=== PATIENT | female | born 1965 | race Caucasian/White ===

== ENCOUNTER 2016-08-04 14:36 | Inpatient (IN) | payer OTHER ==
[~2016-08-04] VITALS: Ht 165.1 cm; Wt 74.1 kg
--- NOTE | ~2016-08-04 | EKG ---
[place] [address] [facility] [place] [address] ELECTROCARDIOGRAM REPORT Name: GELY MARTINEZ SAMANTHA [facility] [id number] Admission: 08/04/16 Attend Phys: Discharge: Date of : 65 Report #: [id number] THIS REPORT FOR: //name// [facility] ED Test Date: 2016-08-04 Test Time: 15:15:58 Pat Name: GELY MARTINEZ Department: Room: Gender: F Brace Maker: DAVID : 1965 Requested By: Debbie Rdz Order Number: [id number] MD: Braxton Lewis Measurements Intervals [place] Rate: 70 P: 80 [place]: 171 QRS: 87 QRSD: 91 T: 62 QT: 401 QTc: 433 Interpretive Statements Sinus rhythm ST elev, probable normal early repol pattern Compared to ECG 07/16/2016 22:02:11 No significant changes Electronically Signed On 08-04-2016 15:52:32 PILOT CAN ROUTER by Braxton Lewis [email or web address] <ELECTRONICALLY SIGNED> By: Braxton Lewis MD 08/04/16 1552 D: [id number] 14 Braxton Lewis MD /LOIDA
[~2016-08-04 14:36] MED LIST: ADVAIR 250-501 EACH IH; ALBUTEROL INH; ALBUTEROL INHAL17 GM IH; ALBUTEROL NEB; ALBUTEROL2.5 MG/3 M INH; ANORO ELLIPTA1 EACH; AUGMENTIN 875875 MG PO; AZITHROMYCIN 2250 MG PO; BACTRIM DS TAB1 EACH PO; BENZTROPINE MESY2 MG PO; BREO ELLIPTA 21 EACH IH; CHLORDIAZEPOXIDE5 M2 PO; DOXYCYCLINE 10100 M1 PO; DUONEB 2.5-0.5 M3 ML INH; ESKALITH300 MG PO; INCRUSE ELLI62.5 MCG IH; LAMOTRIGINE200 MG PO; LEVAQUIN 500 M500 M1 PO; LEVAQUIN 500 M500 M2 PO; LOPRESSOR50 PO; MEDROLDOSEPACK PO; MOBIC15 MG PO; MOBIC7.5 MG PO; MUCINEX TA600 MG/TA2 PO; MUCINEX600 MG; NORCO 5-325 TA1 EACH PO; NORFLEX100 MG PO; PERCOCET 5-3251 EACH PO; PREDNISONE 10 M10 M1 PO; PREDNISONE 10 M10 MG PO; PREDNISONE 20 M20 M1 PO; PREDNISONE 5 MG5 M1 PO; PREDNISONE50 MG PO; PROAIR HFA8.5 GM IH; PROAIR RESPICL90 MCG IH; PROPRANOLOL 1010 MG PO; PROPRANOLOL 20M20 M1 PO; QUETIAPINE FUM200 MG PO; SEROQUEL400 MG PO; SPIRIVA INH; SYNTHROID150 MCG PO; SYNTHROID50 MCG PO; TESSALON PERLE100 MG; TESSALON PERLE100 MG PO; TRAMADOL; VENTOLIN17 GM INH; VITAMIN D 5050000 I1 PO; ZPAK PO
[2016-08-04 14:37] VITALS: BP 104/70
[2016-08-04 15:19] LABS: ABSOLUTE NEUTROPHILS 3.6 thou/uL (1.4-8.2); BASOPHILS 0.5 % (0.0-2.0); EOSINOPHILS 1.3 % (0.0-3.0); HEMATOCRIT 40.6 % (37.0-47.0); HEMOGLOBIN 13.1 gm/dL (12.0-15.0); LYMPHOCYTES 29.7 % (24.0-44.0); MCH 29.1 pg (26.0-34.0); MCHC 32.2 % (28.0-37.0); MCV 90.4 fL (80.0-100.0); MONOCYTES 4.2 % (1.0-8.0); PLATELET COUNT 141 thou/uL (150-400); POLYS 64.3 % (36.0-66.0); RBC 4.49 mil/uL (4.20-5.00); RDW 14.6 % (10.5-14.5); WBC 5.5 thou/uL (4.0-11.0)
[2016-08-04 15:21] LABS: MANUAL DIFF NO
[2016-08-04 15:23] LABS: ANION GAP 4 mmol/L (7-16); BUN 11 mg/dL (7-18); CALCIUM 9.2 mg/dL (8.5-10.1); CHLORIDE 105 mmol/L (98-107); CO2 38 mmol/L (21-32); CREATININE 0.8 mg/dL (0.6-1.3); GLUCOSE 133 mg/dL (70-99); POTASSIUM 3.9 mmol/L (3.5-5.1); SODIUM 147 mmol/L (136-145)
[2016-08-04 15:33] LABS: ALBUMIN 3.5 g/dL (3.4-5.0); ALKALINE PHOSPHATASE 62 U/L (46-116); SGOT 10 U/L (15-37); TOTAL BILIRUBIN 0.2 mg/dL (<0.1-1.0); TOTAL PROTEIN 6.7 g/dL (6.4-8.2); TROPONIN-I < 0.04 ng/mL (<0.04-0.07)
[2016-08-04 15:52] LABS: ABG SAMPLE TYPE ARTERIAL; BE(vivo) 6.6 mmol/L (-2 to +3); HCO3 34.7 mmol/L (22.0-26.0); LACTATE 0.91 mmol/L (0.5-2.0); O2(CT) 17.8 mL/dL (15.0-23.0); O2Hb 96.9 % (92.0-98.0); PO2 149.8 mmHg (80.0-100.0); sO2 98.7 % (92.0-98.0); tCO2 36.8 mmol/L (24.0-30.0)
[2016-08-04 15:53] LABS: PCO2 67.8 mmHg (35.0-45.0); STICK SITE R.RADIAL; pH 7.327 (7.360-7.450)
[2016-08-04 16:42] VITALS: BP 99/61
[2016-08-04 17:37] VITALS: BP 95/54
[2016-08-04 19:15] VITALS: BP 94/51
[2016-08-04 23:15] LABS: SGPT 20 U/L (30-65)
[2016-08-05] VITALS (9 sets, daily range): BP systolic 89–136; BP diastolic 41–72
[2016-08-05 00:58] LABS: ABG SAMPLE TYPE ARTERIAL; BE(vivo) 5.7 mmol/L (-2 to +3); HCO3 32.9 mmol/L (22.0-26.0); O2(CT) 17.1 mL/dL (15.0-23.0); O2Hb 92.7 % (92.0-98.0); PO2 68.4 mmHg (80.0-100.0); pH 7.357 (7.360-7.450); sO2 92.5 % (92.0-98.0); tCO2 34.7 mmol/L (24.0-30.0)
[2016-08-05 00:59] LABS: LACTATE 3.72 mmol/L (0.5-2.0); STICK SITE L.RADIAL
[2016-08-05 04:40] LABS: HEMATOCRIT 39.8 % (37.0-47.0); HEMOGLOBIN 12.5 gm/dL (12.0-15.0); MCH 28.5 pg (26.0-34.0); MCHC 31.3 % (28.0-37.0); MCV 91.1 fL (80.0-100.0); PLATELET COUNT 164 thou/uL (150-400); RBC 4.37 mil/uL (4.20-5.00); RDW 14.8 % (10.5-14.5); WBC 5.3 thou/uL (4.0-11.0)
[2016-08-05 04:44] LABS: MANUAL DIFF YES
[2016-08-05 04:50] LABS: CREATININE 0.9 mg/dL (0.6-1.3); POTASSIUM 4.1 mmol/L (3.5-5.1)
[2016-08-05 07:05] LABS: ANISOCYTOSIS SLIGHT; PLATELET ESTIMATE NORMAL; TOTAL CELL COUNT 100
[2016-08-05] MEDS ORDERED: LOPRESSOR50 PO (14:58)
[2016-08-05] MEDS ORDERED: SEROQUEL 50 MG50 MG PO (15:00)
[2016-08-06 05:42] VITALS: BP 115/53
[2016-08-06 08:00] VITALS: BP 122/75
[2016-08-06 12:00] VITALS: BP 118/72
[2016-08-06] MEDS ORDERED: LEVAQUIN 500 M500 M9 PO (12:00)
[2016-08-06] MEDS ORDERED: PREDNISONE 10 M10 M1 PO (12:07)
[2016-08-06] MEDS ORDERED: ZITHROMAX250 MG NG (12:07)
[2016-08-06] MEDS ORDERED: ALBUTEROL2.5 MG/3 M INH (12:07)
[2016-10-05] MEDS ORDERED: DUREZOL5 ML OP (20:45)
[2016-10-05] MEDS ORDERED: BESIVANCE5 ML OP (20:46)
[2016-10-05] MEDS ORDERED: QUETIAPINE FUM200 MG PO (20:46)
[2016-10-05] MEDS ORDERED: FLEXERIL PO (21:11)
[2016-10-05] MEDS ORDERED: NORCO 5-325 TA1 EACH PO (21:12)
== END 2016-08-06 15:30 | disposition home or self-care (01) | DRG 189 ==
LOC: ER 14:36 → EROBS 16:14 → 4S 16:14
PROVIDERS: Emergency Medicine; Internal Medicine
PROC: 5A09357 Assistance with Respiratory Ventilation, Less than 24 Consecutive Hours, Continuous Positive Airway Pressure (ICD-10-PCS; principal; 2016-08-05)
DX: J96.21 Acute and chronic respiratory failure with hypoxia (principal); J44.1 Chronic obstructive pulmonary disease with (acute) exacerbation; E03.9 Hypothyroidism, unspecified; F31.9 Bipolar disorder, unspecified; J45.909 Unspecified asthma, uncomplicated; F41.9 Anxiety disorder, unspecified; J96.22 Acute and chronic respiratory failure with hypercapnia; F17.210 Nicotine dependence, cigarettes, uncomplicated; Z79.52 Long term (current) use of systemic steroids; Z79.899 Other long term (current) drug therapy; Z90.710 Acquired absence of both cervix and uterus; Z88.6 Allergy status to analgesic agent; Z88.1 Allergy status to other antibiotic agents; Z82.49 Family history of ischemic heart disease and other diseases of the circulatory system; Z83.6 Family history of other diseases of the respiratory system; Z98.890 Other specified postprocedural states
CPT/HCPCS: 10100

== ENCOUNTER 2016-11-03 18:12 | Inpatient (IN) | payer OTHER ==
[2016-11-03] VITALS (8 sets, daily range): BP systolic 87–101; BP diastolic 37–64
[~2016-11-03] VITALS: Ht 165.1 cm; Wt 77.1 kg
--- NOTE | ~2016-11-03 | HC ---
[facility] [place] [address] CONSULTATION Name: GELY MARTINEZ Room #: 304-P [facility] IN M.R.#: [id number] Admission: 11/03/16 Attend Phys: Kalee Fuchs MD Discharge: 11/06/16 Date of : 65 Report #: [id number] THIS REPORT FOR: //name// CC: Olivia Fuchs DATE OF SERVICE: 11/03/2016 REASON FOR CONSULTATION: Hypercapnic respiratory failure. Forty minutes critical care time. IMPRESSION: 1. Acute on chronic hypercapnic respiratory failure. 2. Encephalopathy. 3. Leukocytosis without bandemia. 4. Hyponatremia. 5. Bipolar disorder. 6. Hypothyroidism. 7. Tobacco use. PLAN: CT scan has been done and negative. The patient did recognize me. Urine drug screen and lithium levels are being checked. Corticosteroids will be given as well as bronchodilators. We will use Levaquin and vancomycin and switch to oral. Blood, sputum and urine has been done as well as viral screen. She will be monitored in the ICU and another ABG will be checked. We will obtain sputum also. HISTORY: A 51-year-old female admitted with encephalopathy, hypercapnia initially brought into the emergency room secondary to some shortness of breath, some cough. She has not been compliant with CPAP and I am not sure about her oxygen. She denies fever, chills, sputum production. No chest pain. She is on BiPAP at present. PAST MEDICAL HISTORY: MEDICATIONS: Included albuterol, difluprednate, , Seroquel, albuterol, DuoNeb, lithium, Breo, Lopressor, Synthroid, chlordiazepoxide, lamotrigine, Cogentin and Mobic. FAMILY HISTORY: Positive for depression and coronary artery disease. SOCIAL HISTORY: Positive tobacco. Negative ETOH. ALLERGIES: CEPHALOSPORIN and CODEINE. [facility] [address] [place] [address] CONSULTATION Name: GELY MARTINEZ Room #: 304-P [facility] IN [facility].#: [id number] Admission: 11/03/16 Attend Phys: Kalee Fuchs MD Discharge: 11/06/16 Date of : 65 Report #: [id number] REVIEW OF SYSTEMS: No fever or chills. No nausea or vomiting. Positive headache, confusion. No hemoptysis, hematemesis or hematuria. PHYSICAL EXAMINATION: VITAL SIGNS: Temp 100, pulse 79, respirations 23, BP 101/58. HEENT: Eyes: Negative icterus. Trachea midline, BiPAP on. LUNGS: Slight wheeze. HEART: Regular. ABDOMEN: Bowel sounds present. EXTREMITIES: Showed no calf tenderness, moved all extremities. Influenza negative. BUN 15, creatinine 0.8, sodium 133. CT head showed no intracranial hemorrhage. White count 25.5, hemoglobin 12.6, platelets 167, bands were 3. Initial ABG 7.31, pCO2 of 75, pO2 101 on 4 liters. Chest x-ray showed no acute infiltrates. We will follow closely with you. <ELECTRONICALLY SIGNED> By: Katlin Valdez MD 11/06/16 2045 2224 1210 Katlin Valdez MD /nt
--- NOTE | ~2016-11-03 | D ---
[facility] [place] [address] DISCHARGE SUMMARY Name: GELY MARTINEZ Room #: 304-P [facility] IN M.R.#: [id number] Admission: 11/03/16 Attend Phys: Kalee Fuchs MD Discharge: 11/06/16 Date of : 65 Report #: [id number] THIS REPORT FOR: //name// CC: Olivia Fuchs DATE OF SERVICE: 11/06/2016 HISTORY OF PRESENT ILLNESS: The patient is a 51-year-old female with complicated past medical history, including severe oxygen dependent COPD, who came to the hospital with altered mental status. Please refer to the admission H and P for details. In brief, the patient was found to be in acute on chronic hypercapnic respiratory failure. She also had elevated white count as well as UTI. HOSPITALIZATION COURSE: The patient was hospitalized at [facility]. She was hospitalized in the ICU. The patient also had low-grade temperature. The patient had similar hospitalization here in July of this year, so she was started on presumed healthcare-associated pneumonia and sepsis, although her chest x-ray was unremarkable. Trimming Machine Operator was also consulted. The patient was started on stress doses of steroids and nebulizers. Overnight, the patient's condition improved significantly. Her white count has dropped from 25,000 to 1800 and then to 13,000. She returned to her baseline. By next day, the patient was already fully alert, awake, and oriented. Her condition continued to improve. Currently, the patient's condition is stable. She is on 4 liters of oxygen by nasal cannula, which is her baseline. As noted, the patient also had a urinary tract infection on admission. Fortunately, sensitivities were not performed, and it was interpreted as normal vaginal iker. Urine test came positive for Strep pneumoniae antigen. The patient is already on Levaquin as well as she was treated with vancomycin. At home, she will be continued on Levaquin for 7 more days. In addition to clinical improvement, the patient also had significant improvement on ABG. Her pCO2 currently is 49 from 74 on admission. PO2 remains normal. The patient's condition is currently acceptable, including her physical examination as documented in the patient's chart. [address] [address] DISCHARGE SUMMARY Name: GELY MARTINEZ Room #: 304-P [facility] IN ..#: [id number] Admission: 11/03/16 Attend Phys: Kalee Fuchs MD Discharge: 11/06/16 Date of : 65 Report #: [id number] DISCHARGE DIAGNOSES: 1. Acute on chronic hypoxemic and hypercapnic respiratory failure, due to chronic obstructive pulmonary disease exacerbation and pneumonia. Clinically much better as detailed above, and the patient is currently at baseline, 4 liters oxygen by nasal cannula, and chronic prednisone treatment. 2. Altered mental status due to hypercapnia, resolved. 3. Pneumonia, urine positive for Strep pneumoniae antigen. The patient will be treated with Levaquin as an outpatient. 4. Urinary tract infection. As noted, urine showed gram-negative rods, but sensitivities not performed. Levaquin will be continued unchanged. 5. Chronic ongoing tobacco abuse. The patient is strongly advised to quit. 6. Bipolar disease, anxiety and depression. Stable during the hospitalization. 7. Hypothyroidism. Replaced with Synthroid. DISCHARGE MEDICATIONS: Please refer to the medication reconciliation list. In brief, the patient will be continued on Levaquin for 7 more days, and she will be continued on prednisone 10 mg a day, after tapering off her regimen. The patient already has oxygen and nebulizers at home. FOLLOWUP PLAN: 1. Follow up with the primary care physician in 1 to 2 weeks. 2. Follow up with the mems engineer in 1 to 2 weeks. I spent greater than 30 minutes to coordinate the patient's discharge from the hospital. By: [id number] Kalee Fuchs MD /nt
--- NOTE | ~2016-11-03 | H ---
[facility] [place] [address] HISTORY AND PHYSICAL Name: GELY MARTINEZ Room #: 304-P [facility] IN M.R.#: [id number] Admission: 11/03/16 Attend Phys: Kalee Fuchs MD Discharge: 11/06/16 Date of : 65 Report #: [id number] THIS REPORT FOR: //name// CC: Olivia Fuchs DATE OF SERVICE: 11/03/2016 ATTENDING PHYSICIAN: Luciano Panda M.D. PRIMARY CARE PHYSICIAN: Olivia Ritter D.O. CHIEF COMPLAINT: Altered mental status. HISTORY OF PRESENT ILLNESS: The patient is a 51-year-old female with known severe COPD, which is oxygen and steroid dependent. She has been admitted multiple times with hypercapnic and hypoxic respiratory failure. She is known to be noncompliant with wearing her oxygen as well as her CPAP at night. She was brought in to the ED by her spouse who is stating that she had been confused and disoriented and short of breath. Her shortness of breath had been going on throughout the day, but then she became more lethargic. She is supposed to be wearing 4 liters of oxygen continuously. She was just admitted in July for respiratory failure. She is currently seen in the ICU and on BiPAP. She looks alert, but she is minimally verbal. She does have multiple underlying psychiatric issues. It is not clear if she is compliant with those medications either. The spouse is not currently available to answer any questions. The patient at one point did pull off her BiPAP and turned blue very quickly, and her oxygen saturation dropped into the 60s. She is now being restrained. PAST MEDICAL HISTORY: Severe COPD which is oxygen and steroid dependent, sleep apnea, hypothyroidism, bipolar disorder, anxiety and depression. PAST SURGICAL HISTORY: Hysterectomy and a bladder sling. ALLERGIES: CEPHALOSPORINS and CODEINE. HOME MEDICATIONS: Albuterol inhaler, Durezol eyedrops t.i.d., Besivance eyedrops t.i.d., Seroquel 200 mg b.i.d., DuoNeb q.4 hours p.r.n., lithium 600 mg daily, Breo 1 puff b.i.d., metoprolol 50 mg b.i.d., Seroquel 200 mg b.i.d., levothyroxine 150 mcg daily, Incruse Ellipta 1 puff as directed, chlordiazepoxide 5 mg t.i.d., Lamictal 200 mg b.i.d., Cogentin 2 mg daily and Mobic 15 mg daily. SOCIAL HISTORY: The patient still smokes up to a half a pack of cigarettes per day. She has been smoking since the age of 10. There is no prior alcohol or drug use. She lives at home with her spouse. She is on disability. [address] [address] HISTORY AND PHYSICAL Name: GELY MARTINEZ Room #: 304-P [facility] IN M..#: [id number] Admission: 11/03/16 Attend Phys: Kalee Fuchs MD Discharge: 11/06/16 Date of : 65 Report #: [id number] FAMILY HISTORY: Significant for heart disease and COPD. REVIEW OF SYSTEMS: Unobtainable due to altered mental status. PHYSICAL EXAMINATION: GENERAL: The patient is a somnolent female in mild respiratory distress. HEENT: PERRLA. The patient will not track with her eyes. Oral mucosa is pink and moist. NECK: No JVD noted. CARDIOVASCULAR: Normal S1 and S2. No murmurs, rubs or gallops. RESPIRATORY: Breath sounds are very diminished diffusely. She does have labored breathing. When her BiPAP was removed by herself briefly, she did become very cyanotic in her face and lips and had some shallow respirations. ABDOMEN: Soft and nondistended. Bowel sounds are positive. VASCULAR: No edema noted. Pedal pulses are 2+. Feet are warm. NEUROLOGIC: The patient is minimally verbal. She was able to state she was in the hospital. She intermittently follow commands. LABORATORY AND DIAGNOSTIC DATA: WBC is 25.6, hemoglobin 12.6 and platelets ____. Sodium 133, potassium 4.5, BUN 15, creatinine 0.8 and glucose is 116. Liver enzymes are within normal limits. Troponin is negative. UA showed 2+ leukocyte esterase, 6-15 wbc's, many squamous cells, moderate bacteria. Initial ABG showed a pH of 7.31, pCO2 of 74.9, pO2 of 101 and bicarbonate of 36.9 with a lactate of 1.06. Chest x-ray is negative. EKG showed sinus rhythm. ASSESSMENT AND PLAN: 1. Gqllo-at-gnbzemv hypoxic and hypercapnia respiratory failure. The patient has been admitted multiple times in the past for the same thing. She is currently on BiPAP. She told the ER she did not want to be intubated. We will repeat an ABG at this time. Pulmonary has been consulted. Continue with IV steroids and scheduled breathing treatments. Chest x-ray is negative, but since she does have leukocytosis, we will continue with IV antibiotics. 2. Altered mental status likely due to hypercapnia. We will see if this improves when she is on BiPAP. 3. Fever with leukocytosis. She had a low-grade temperature upon arrival with a WBC of 25.6. When she was discharged previously, her white count was normal. We will follow all cultures. We will try to obtain a sputum culture. There is possible urinary tract infection, and urine will be sent for culture as well. Continue with the IV antibiotics. 4. Urinary tract infection. Urine will be sent for culture. Continue with Levaquin. 5. Bipolar, anxiety and depression. Resume her home meds when able to take p.o. 6. Ongoing tobacco abuse. 7. Hypothyroidism. Continue Synthroid. [facility] [address] [place] [address] HISTORY AND PHYSICAL Name: MICHELLEGELY Room #: 304-P [facility] IN .R.#: [id number] Admission: 11/03/16 Attend Phys: Kalee Fuchs MD Discharge: 11/06/16 Date of : 65 Report #: [id number] 8. Deep venous thrombosis prophylaxis. Add Lovenox. We will continue to follow the patient closely throughout the hospitalization and make changes based on clinical status. <ELECTRONICALLY SIGNED> By: NAIMA Ferraro 11/08/16 0608 0808 1007 Heidy Augustin, NURSING CLERK /nt
--- NOTE | ~2016-11-03 | EKG ---
[address] [address] ELECTROCARDIOGRAM REPORT Name: GELY MARTINEZ Room #: 247-P ADM IN M.R.#: [id number] Admission: 11/03/16 Attend Phys: Kalee Fuchs MD Discharge: Date of : 65 Report #: [id number] THIS REPORT FOR: //name// [facility] ED Test Date: 2016-11-03 Test Time: 19:12:21 Pat Name: GELY MARTINEZ Department: Room: [facility] Gender: F Dry Cell Assembly Supervisor: AWA : 1965 Requested By: Debbie Rdz Order Number: [id number] MD: Raudel Wolf Measurements Intervals [place] Rate: 85 P: 75 [place]: 160 QRS: 81 QRSD: 98 T: 36 QT: 381 QTc: 453 Interpretive Statements Sinus rhythm Possible repolarization abnormality Compared to ECG 08/04/2016 15:15:58 no significant change was found Electronically Signed On 11-04-2016 9:36:04 CDT by Raudel Wolf [email or web address] <ELECTRONICALLY SIGNED> By: Raudel Wolf MD, [facility] 11/04/16 0936 11 11 Raudel Wolf MD, [facility] /EPI
[~2016-11-03 18:12] MED LIST changes: +BESIVANCE5 ML OP; +DUREZOL5 ML OP; +FLEXERIL PO; +LEVAQUIN 500 M500 M9 PO; +SEROQUEL 50 MG50 MG PO; +ZITHROMAX250 MG NG
[2016-11-03 18:47] LABS: ABG SAMPLE TYPE ARTERIAL; BE(vivo) 7.8 mmol/L (-2 to +3); HCO3 36.9 mmol/L (22.0-26.0); LACTATE 1.06 mmol/L (0.5-2.0); O2(CT) 18.5 mL/dL (15.0-23.0); O2Hb 96.2 % (92.0-98.0); PO2 101.1 mmHg (80.0-100.0); sO2 96.8 % (92.0-98.0); tCO2 39.2 mmol/L (24.0-30.0)
[2016-11-03 18:48] LABS: PCO2 74.9 mmHg (35.0-45.0); STICK SITE R.RADIAL
[2016-11-03 18:56] LABS: HEMATOCRIT 39.2 % (37.0-47.0); HEMOGLOBIN 12.6 gm/dL (12.0-15.0); MANUAL DIFF YES; MCH 29.2 pg (26.0-34.0); MCHC 32.2 g/dL (28.0-37.0); MCV 90.6 fL (80.0-100.0); PLATELET COUNT 167 thou/uL (150-400); RBC 4.32 mil/uL (4.20-5.00); RDW 13.8 % (10.5-14.5); WBC 25.5 thou/uL (4.0-11.0)
[2016-11-03 19:01] LABS: ANION GAP < 0 mmol/L (7-16); BUN 15 mg/dL (7-18); CALCIUM 9.9 mg/dL (8.5-10.1); CHLORIDE 97 mmol/L (98-107); CO2 39 mmol/L (21-32); CREATININE 0.8 mg/dL (0.6-1.0); GLUCOSE 116 mg/dL (74-106); POTASSIUM 4.5 mmol/L (3.5-5.1); SODIUM 133 mmol/L (136-145)
[2016-11-03 19:13] LABS: ALBUMIN 3.5 g/dL (3.4-5.0); ALKALINE PHOSPHATASE 67 U/L (46-116); NT-PRO BRAIN NAT PEPTIDE 45 pg/mL (<300); SGOT 11 U/L (15-37); SGPT 16 U/L (30-65); TOTAL BILIRUBIN 0.4 mg/dL (<0.1-1.0); TOTAL PROTEIN 6.9 g/dL (6.4-8.2); TROPONIN-I < 0.04 ng/mL (<0.04-0.07)
[2016-11-03 19:14] LABS: ABSOLUTE NEUTROPHILS 23.5 thou/uL (1.4-8.2); TOTAL CELL COUNT 100
[2016-11-03 20:18] LABS: ABG SAMPLE TYPE ARTERIAL; HCO3 35.5 mmol/L (22.0-26.0); LACTATE 0.88 mmol/L (0.5-2.0); O2(CT) 15.8 mL/dL (15.0-23.0); O2Hb 89.9 % (92.0-98.0); PO2 65.7 mmHg (80.0-100.0); sO2 90.4 % (92.0-98.0); tCO2 37.7 mmol/L (24.0-30.0)
[2016-11-03 20:19] LABS: PCO2 71.8 mmHg (35.0-45.0); STICK SITE R.BRACHIAL; pH 7.312 (7.360-7.450)
[2016-11-03 20:20] LABS: Pressure Support 6 cm H20
[2016-11-03 20:44] LABS: URINE BILIRUBIN NEGATIVE (Negative); URINE BLOOD NEGATIVE (Negative); URINE COLOR YELLOW; URINE GLUCOSE-RANDOM* NEGATIVE (Negative); URINE KETONES NEGATIVE (Negative); URINE LEUKOCYTES-REFLEX 2+ (Negative); URINE PROTEIN (DIPSTICK) NEGATIVE (Negative); URINE UROBILINOGEN 0.2 E.U./dl (0.2-1.0)
[2016-11-03 20:56] LABS: SQUAMOUS >10 Many /LPF (0-3)
[2016-11-03 20:57] LABS: CASTS None Seen /LPF (None Seen); CRYSTALS None Seen /LPF (None Seen); URINE RBC None Seen /HPF (0-2); URINE WBC-REFLEX 6-15 Few /HPF (0-5)
[2016-11-04] VITALS (28 sets, daily range): BP systolic 85–166; BP diastolic 50–153
[2016-11-04 00:24] LABS: ABG SAMPLE TYPE ARTERIAL; BE(vivo) 1.1 mmol/L (-2 to +3); HCO3 32.8 mmol/L (22.0-26.0); LACTATE 1.24 mmol/L (0.5-2.0); O2(CT) 17.9 mL/dL (15.0-23.0); O2Hb 93.1 % (92.0-98.0); PO2 85.5 mmHg (80.0-100.0); sO2 92.8 % (92.0-98.0); tCO2 35.8 mmol/L (24.0-30.0)
[2016-11-04 00:25] LABS: PCO2 95.1 mmHg (35.0-45.0); STICK SITE R.RADIAL; pH 7.156 (7.360-7.450)
[2016-11-04 05:32] LABS: ABG SAMPLE TYPE ARTERIAL; BE(vivo) 3.5 mmol/L (-2 to +3); HCO3 32.2 mmol/L (22.0-26.0); LACTATE 0.56 mmol/L (0.5-2.0); O2(CT) 16.8 mL/dL (15.0-23.0); O2Hb 95.3 % (92.0-98.0); PO2 90.2 mmHg (80.0-100.0); sO2 95.5 % (92.0-98.0); tCO2 34.3 mmol/L (24.0-30.0)
[2016-11-04 05:34] LABS: FIO2 40 %; PCO2 70.7 mmHg (35.0-45.0); Pressure Support 8 cm H20; STICK SITE R.RADIAL; pH 7.276 (7.360-7.450)
[2016-11-04 06:49] LABS: HEMATOCRIT 35.3 % (37.0-47.0); HEMOGLOBIN 11.5 gm/dL (12.0-15.0); MCH 29.8 pg (26.0-34.0); MCHC 32.6 g/dL (28.0-37.0); MCV 91.6 fL (80.0-100.0); PLATELET COUNT 159 thou/uL (150-400); RBC 3.85 mil/uL (4.20-5.00); RDW 13.8 % (10.5-14.5); WBC 18.8 thou/uL (4.0-11.0)
[2016-11-04 06:51] LABS: MANUAL DIFF YES
[2016-11-04 07:10] LABS: ALBUMIN 2.7 g/dL (3.4-5.0); ALKALINE PHOSPHATASE 60 U/L (46-116); ANION GAP 2 mmol/L (7-16); BUN 13 mg/dL (7-18); CHLORIDE 104 mmol/L (98-107); CO2 35 mmol/L (21-32); CREATININE 0.7 mg/dL (0.6-1.0); GLUCOSE 119 mg/dL (74-106); MAGNESIUM 1.9 mg/dL (1.8-2.4); POTASSIUM 4.8 mmol/L (3.5-5.1); SGOT 13 U/L (15-37); SGPT 17 U/L (30-65); TOTAL BILIRUBIN 0.4 mg/dL (<0.1-1.0); TROPONIN-I < 0.04 ng/mL (<0.04-0.07)
[2016-11-04 07:43] LABS: SODIUM 141 mmol/L (136-145)
[2016-11-04 08:03] LABS: ABSOLUTE NEUTROPHILS 18.2 thou/uL (1.4-8.2); ANISOCYTOSIS SLIGHT; TOTAL CELL COUNT 100
[2016-11-05] VITALS (12 sets, daily range): BP systolic 97–125; BP diastolic 53–71
[2016-11-05 03:48] LABS: HEMATOCRIT 32.3 % (37.0-47.0); HEMOGLOBIN 10.6 gm/dL (12.0-15.0); MCH 29.8 pg (26.0-34.0); MCHC 32.9 g/dL (28.0-37.0); MCV 90.6 fL (80.0-100.0); PLATELET COUNT 139 thou/uL (150-400); RBC 3.57 mil/uL (4.20-5.00); RDW 13.7 % (10.5-14.5); WBC 13.4 thou/uL (4.0-11.0)
[2016-11-05 03:53] LABS: CALCIUM 8.7 mg/dL (8.5-10.1); CREATININE 0.7 mg/dL (0.6-1.0)
[2016-11-05 04:07] LABS: MANUAL DIFF YES
[2016-11-05 05:16] LABS: ABG SAMPLE TYPE ARTERIAL; HCO3 27.9 mmol/L (22.0-26.0); LACTATE 2.06 mmol/L (0.5-2.0); O2(CT) 17.6 mL/dL (15.0-23.0); O2Hb 95.4 % (92.0-98.0); PCO2 49.1 mmHg (35.0-45.0); PO2 83.1 mmHg (80.0-100.0); pH 7.373 (7.360-7.450); sO2 95.9 % (92.0-98.0); tCO2 29.4 mmol/L (24.0-30.0)
[2016-11-05 05:17] LABS: ABG COMMENT BIPAP 14/6 R-12 NOC; Pressure Support 8 cm H20; STICK SITE R.BRACHIAL
[2016-11-05 08:09] LABS: ABSOLUTE NEUTROPHILS 12.6 thou/uL (1.4-8.2); TOTAL CELL COUNT 100
[2016-11-06 03:40] VITALS: BP 115/52
[2016-11-06 04:39] LABS: HEMATOCRIT 36.1 % (37.0-47.0); HEMOGLOBIN 11.5 gm/dL (12.0-15.0); MCH 29.4 pg (26.0-34.0); MCHC 31.9 g/dL (28.0-37.0); MCV 92.1 fL (80.0-100.0); PLATELET COUNT 173 thou/uL (150-400); RBC 3.92 mil/uL (4.20-5.00); RDW 13.9 % (10.5-14.5); WBC 13.9 thou/uL (4.0-11.0)
[2016-11-06 04:57] LABS: MANUAL DIFF YES
[2016-11-06 07:23] LABS: ABSOLUTE NEUTROPHILS 12.9 thou/uL (1.4-8.2); ANISOCYTOSIS 1+; POIKILOCYTOSIS SLIGHT; TOTAL CELL COUNT 100
[2016-11-06 08:07] VITALS: BP 109/57
[2016-11-06 11:55] VITALS: BP 119/74
[2016-11-06] MEDS ORDERED: PREDNISONE10 MG PO (12:51)
[2016-11-06] MEDS ORDERED: LEVAQUIN 750 M750 MG PO (12:51)
[2016-11-06 14:33] VITALS: BP 119/74
== END 2016-11-06 15:44 | disposition home or self-care (01) | DRG 871 ==
LOC: ER 18:12 → EROBS 21:01 → ICU 21:01 → 3N 11-05 12:17
PROVIDERS: Emergency Medicine; Internal Medicine Endocrinology, Diabetes & Metabolism; Internal Medicine Pulmonary Disease
PROC: 5A09457 Assistance with Respiratory Ventilation, 24-96 Consecutive Hours, Continuous Positive Airway Pressure (ICD-10-PCS; principal; 2016-11-03)
DX: A41.9 Sepsis, unspecified organism (principal); J96.22 Acute and chronic respiratory failure with hypercapnia; J15.4 Pneumonia due to other streptococci; G93.40 Encephalopathy, unspecified; J96.21 Acute and chronic respiratory failure with hypoxia; N39.0 Urinary tract infection, site not specified; E87.1 Hypo-osmolality and hyponatremia; J44.1 Chronic obstructive pulmonary disease with (acute) exacerbation; J44.0 Chronic obstructive pulmonary disease with (acute) lower respiratory infection; E03.9 Hypothyroidism, unspecified; J44.9 Chronic obstructive pulmonary disease, unspecified; F31.9 Bipolar disorder, unspecified; F41.9 Anxiety disorder, unspecified; D72.829 Elevated white blood cell count, unspecified; F17.210 Nicotine dependence, cigarettes, uncomplicated; I25.10 Atherosclerotic heart disease of native coronary artery without angina pectoris; Z81.8 Family history of other mental and behavioral disorders; Z88.8 Allergy status to other drugs, medicaments and biological substances; Z82.49 Family history of ischemic heart disease and other diseases of the circulatory system; Z88.6 Allergy status to analgesic agent; Z90.710 Acquired absence of both cervix and uterus; Z83.6 Family history of other diseases of the respiratory system; Z91.19 Patient's noncompliance with other medical treatment and regimen
CPT/HCPCS: 10078; 10096

== ENCOUNTER 2017-04-08 19:51 | Emergency (ER) | payer OTHER ==
[~2017-04-08] VITALS: Ht 165.1 cm; Wt 68.0 kg
[~2017-04-08 19:51] MED LIST changes: +LEVAQUIN 750 M750 MG PO; +PREDNISONE10 MG PO
[2017-04-08 20:30] LABS: ABG SAMPLE TYPE ARTERIAL; BE(vivo) 2.4 mmol/L (-2 to +3); HCO3 29.8 mmol/L (22.0-26.0); LACTATE 0.83 mmol/L (0.5-2.0); O2(CT) 18.8 mL/dL (15.0-23.0); O2Hb 93.3 % (92.0-98.0); PCO2 58.3 mmHg (35.0-45.0); PO2 88.2 mmHg (80.0-100.0); STICK SITE R.BRACHIAL; pH 7.327 (7.360-7.450); sO2 95.9 % (92.0-98.0); tCO2 31.6 mmol/L (24.0-30.0)
[2017-04-08 20:33] LABS: HEMATOCRIT 40.4 % (37.0-47.0); HEMOGLOBIN 13.2 gm/dL (12.0-15.0); MCH 28.1 pg (26.0-34.0); MCHC 32.7 g/dL (28.0-37.0); PLATELET COUNT 180 thou/uL (150-400); RDW 14.2 % (10.5-14.5); WBC 9.1 thou/uL (4.0-11.0)
[2017-04-08 20:34] LABS: MANUAL DIFF YES
[2017-04-08 20:42] LABS: ANION GAP 6 mmol/L (7-16); BUN 9 mg/dL (7-18); CALCIUM 9.9 mg/dL (8.5-10.1); CHLORIDE 98 mmol/L (98-107); CO2 33 mmol/L (21-32); CREATININE 0.8 mg/dL (0.6-1.0); GLUCOSE 135 mg/dL (74-106); POTASSIUM 3.9 mmol/L (3.5-5.1); SODIUM 137 mmol/L (136-145)
[2017-04-08 20:48] LABS: ALBUMIN 3.9 g/dL (3.4-5.0); ALKALINE PHOSPHATASE 77 U/L (46-116); DIRECT BILIRUBIN < 0.1 mg/dL (<0.1-0.3); MAGNESIUM 1.9 mg/dL (1.8-2.4); SGOT 11 U/L (15-37); SGPT 13 U/L (30-65); TOTAL BILIRUBIN 0.5 mg/dL (<0.1-1.0); TOTAL PROTEIN 8.1 g/dL (6.4-8.2)
[2017-04-08 20:54] LABS: ABSOLUTE NEUTROPHILS 7.9 thou/uL (1.4-8.2); TOTAL CELL COUNT 100
[2017-04-08] MEDS ORDERED: PREDNISONE50 MG PO (21:56)
[2017-04-08] MEDS ORDERED: ZPAK PO (21:56)
== END 2017-04-08 22:22 | disposition home or self-care (01) ==
LOC: ER 19:51
PROVIDERS: Emergency Medicine
DX: J44.1 Chronic obstructive pulmonary disease with (acute) exacerbation (principal); E03.9 Hypothyroidism, unspecified; F31.9 Bipolar disorder, unspecified; F41.9 Anxiety disorder, unspecified; G89.29 Other chronic pain; M54.9 Dorsalgia, unspecified; M19.90 Unspecified osteoarthritis, unspecified site; F17.210 Nicotine dependence, cigarettes, uncomplicated; Z90.710 Acquired absence of both cervix and uterus; Z88.1 Allergy status to other antibiotic agents; Z88.5 Allergy status to narcotic agent

== ENCOUNTER 2017-06-19 11:11 | Inpatient (IN) | payer OTHER ==
[~2017-06-19] VITALS: Ht 165.1 cm; Wt 61.1 kg
[2017-06-19] VITALS (15 sets, daily range): BP systolic 84–141; BP diastolic 58–82
--- NOTE | ~2017-06-19 | EKG ---
[address] [address] ELECTROCARDIOGRAM REPORT Name: GELY MARTINEZ Room #: 243-P ADM IN M.R.#: [id number] Admission: 06/19/17 Attend Phys: Kalee Fuchs MD Discharge: Date of : 65 Report #: [id number] THIS REPORT FOR: //name// [facility] ED Test Date: 2017-06-19 Test Time: 11:30:50 Pat Name: GELY MARTINEZ Department: Room: [facility] Gender: F Track Repairer: [id number] : 1965 Requested By: Zulema Newton Order Number: [id number] MD: Braxton Lewis Measurements Intervals [place] Rate: 84 P: 83 [place]: 164 QRS: 80 QRSD: 96 T: 60 QT: 374 QTc: 443 Interpretive Statements Sinus rhythm ST elev, probable normal early repol pattern Compared to ECG 11/03/2016 19:12:21 ST (T wave) deviation now present Electronically Signed On 06-19-2017 21:25:57 STRAW HAT BRUSHER by Braxton Lewis [email or web address] <ELECTRONICALLY SIGNED> By: Braxton Lewis MD 06/19/17 2125 1130 1130 Braxton Lewis MD /EPI
[2017-06-19 11:37] LABS: HEMATOCRIT 44.7 % (37.0-47.0); HEMOGLOBIN 13.6 gm/dL (12.0-15.0); MCH 27.4 pg (26.0-34.0); MCHC 30.5 g/dL (28.0-37.0); MCV 90.1 fL (80.0-100.0); PLATELET COUNT 133 thou/uL (150-400); RBC 4.97 mil/uL (4.20-5.00); RDW 16.2 % (10.5-14.5); WBC 5.7 thou/uL (4.0-11.0)
[2017-06-19 11:38] LABS: MANUAL DIFF YES
[2017-06-19 11:40] LABS: ABG SAMPLE TYPE ARTERIAL; BE(vivo) 8.2 mmol/L (-2 to +3); HCO3 39.7 mmol/L (22.0-26.0); LACTATE 0.52 mmol/L (0.5-2.0); O2(CT) 19.6 mL/dL (15.0-23.0); PCO2 98.1 mmHg (35.0-45.0); PO2 344.4 mmHg (80.0-100.0); pH 7.225 (7.360-7.450); sO2 99.6 % (92.0-98.0); tCO2 42.7 mmol/L (24.0-30.0)
[2017-06-19 11:41] LABS: STICK SITE R.RADIAL
[2017-06-19 11:46] LABS: CALCIUM 9.5 mg/dL (8.5-10.1); CREATININE 0.7 mg/dL (0.6-1.0); POTASSIUM 5.1 mmol/L (3.5-5.1)
[2017-06-19 12:31] LABS: ANISOCYTOSIS 1+; TOTAL CELL COUNT 100
[2017-06-19 12:43] LABS: ABG SAMPLE TYPE ARTERIAL; BE(vivo) 10.3 mmol/L (-2 to +3); HCO3 40.5 mmol/L (22.0-26.0); LACTATE 0.46 mmol/L (0.5-2.0); O2(CT) 16.6 mL/dL (15.0-23.0); O2Hb 89.4 % (92.0-98.0); PCO2 87.8 mmHg (35.0-45.0); PO2 59.5 mmHg (80.0-100.0); STICK SITE R.RADIAL; pH 7.282 (7.360-7.450); sO2 85.9 % (92.0-98.0); tCO2 43.2 mmol/L (24.0-30.0)
[2017-06-19 12:44] LABS: Pressure Support 8 cm H20
[2017-06-19] MEDS ORDERED: MOBIC15 MG PO (17:38)
[2017-06-19 19:42] LABS: ABG SAMPLE TYPE ARTERIAL; BE(vivo) 11.1 mmol/L (-2 to +3); HCO3 39.7 mmol/L (22.0-26.0); LACTATE 2.03 mmol/L (0.5-2.0); O2(CT) 17.4 mL/dL (15.0-23.0); PO2 83.4 mmHg (80.0-100.0); pH 7.351 (7.360-7.450); sO2 95.3 % (92.0-98.0)
[2017-06-19 19:43] LABS: ABG COMMENT V60 16/6 16 40%; PCO2 73.4 mmHg (35.0-45.0); Pressure Support 10 cm H20; STICK SITE R.BRACHIAL
[2017-06-19 22:26] LABS: URINE BILIRUBIN NEGATIVE (Negative); URINE BLOOD NEGATIVE (Negative); URINE COLOR YELLOW; URINE GLUCOSE-RANDOM* NEGATIVE (Negative); URINE KETONES NEGATIVE (Negative); URINE PROTEIN (DIPSTICK) NEGATIVE (Negative); URINE UROBILINOGEN 0.2 E.U./dl (0.2-1.0)
[2017-06-19 22:27] LABS: URINE LEUKOCYTES-REFLEX TRACE (Negative)
[2017-06-20] VITALS (14 sets, daily range): BP systolic 97–130; BP diastolic 64–90
[2017-06-20 04:21] LABS: HEMATOCRIT 39.3 % (37.0-47.0); HEMOGLOBIN 12.2 gm/dL (12.0-15.0); MCH 27.3 pg (26.0-34.0); MCHC 31.2 g/dL (28.0-37.0); MCV 87.7 fL (80.0-100.0); PLATELET COUNT 143 thou/uL (150-400); RBC 4.48 mil/uL (4.20-5.00); RDW 16.4 % (10.5-14.5); WBC 5.4 thou/uL (4.0-11.0)
[2017-06-20 04:22] LABS: MANUAL DIFF YES
[2017-06-20 04:33] LABS: ALBUMIN 3.6 g/dL (3.4-5.0); CALCIUM 9.4 mg/dL (8.5-10.1); CREATININE 0.7 mg/dL (0.6-1.0); MAGNESIUM 2.1 mg/dL (1.8-2.4); POTASSIUM 4.8 mmol/L (3.5-5.1); TOTAL BILIRUBIN 0.3 mg/dL (<0.1-1.0); TOTAL PROTEIN 6.9 g/dL (6.4-8.2)
[2017-06-20 05:02] LABS: ABG COMMENT BIPAP 14/6; ABG SAMPLE TYPE ARTERIAL; BE(vivo) 9.9 mmol/L (-2 to +3); HCO3 36.8 mmol/L (22.0-26.0); LACTATE 1.34 mmol/L (0.5-2.0); O2(CT) 15.9 mL/dL (15.0-23.0); O2Hb 90.7 % (92.0-98.0); PCO2 60.5 mmHg (35.0-45.0); PO2 57.6 mmHg (80.0-100.0); Pressure Support 8 cm H20; STICK SITE R.RADIAL; pH 7.402 (7.360-7.450); sO2 89.2 % (92.0-98.0); tCO2 38.7 mmol/L (24.0-30.0)
[2017-06-20 05:49] LABS: ABSOLUTE NEUTROPHILS 4.7 thou/uL (1.4-8.2); ANISOCYTOSIS 1+; TOTAL CELL COUNT 100
[2017-06-21 03:02] LABS: HEMATOCRIT 37.2 % (37.0-47.0); HEMOGLOBIN 11.7 gm/dL (12.0-15.0); MCH 27.4 pg (26.0-34.0); MCHC 31.5 g/dL (28.0-37.0); MCV 87.2 fL (80.0-100.0); PLATELET COUNT 141 thou/uL (150-400); RBC 4.27 mil/uL (4.20-5.00); RDW 16.4 % (10.5-14.5); WBC 8.9 thou/uL (4.0-11.0)
[2017-06-21 03:08] LABS: CALCIUM 9.2 mg/dL (8.5-10.1); CREATININE 0.8 mg/dL (0.6-1.0); MAGNESIUM 2.3 mg/dL (1.8-2.4); POTASSIUM 4.5 mmol/L (3.5-5.1)
[2017-06-21 03:13] LABS: MANUAL DIFF YES
[2017-06-21 04:00] VITALS: BP 138/85
[2017-06-21 04:49] LABS: ANISOCYTOSIS 1+; TOTAL CELL COUNT 100
[2017-06-21 04:50] LABS: LARGE PLATELETS OCCASIONAL
[2017-06-21 07:56] VITALS: BP 136/84
[2017-06-21] MEDS ORDERED: LEVAQUIN 500 M500 M2 PO (08:56)
[2017-06-21 09:29] VITALS: BP 136/84
[2017-06-21 11:41] VITALS: BP 130/81
== END 2017-06-21 12:20 | disposition home or self-care (01) | DRG 189 ==
LOC: ER 11:11 → EROBS 12:58 → ICU 12:58 → 2N 06-20 11:41 → ENTRNSPT 06-21 12:10 → EDTRNSPTSTS 06-21 12:12 → 2N 06-21 12:20
PROVIDERS: Emergency Medicine; Internal Medicine Pulmonary Disease; Nurse Practitioner
PROC: 5A09357 Assistance with Respiratory Ventilation, Less than 24 Consecutive Hours, Continuous Positive Airway Pressure (ICD-10-PCS; principal; 2017-06-19)
DX: J96.21 Acute and chronic respiratory failure with hypoxia (principal); J44.1 Chronic obstructive pulmonary disease with (acute) exacerbation; E03.9 Hypothyroidism, unspecified; F31.9 Bipolar disorder, unspecified; F41.9 Anxiety disorder, unspecified; G89.29 Other chronic pain; M54.9 Dorsalgia, unspecified; M19.90 Unspecified osteoarthritis, unspecified site; F17.210 Nicotine dependence, cigarettes, uncomplicated; J96.02 Acute respiratory failure with hypercapnia; I95.9 Hypotension, unspecified; D69.6 Thrombocytopenia, unspecified; Z79.899 Other long term (current) drug therapy; Z82.49 Family history of ischemic heart disease and other diseases of the circulatory system; Z90.710 Acquired absence of both cervix and uterus; Z98.49 Cataract extraction status, unspecified eye; Z88.6 Allergy status to analgesic agent; Z88.8 Allergy status to other drugs, medicaments and biological substances; Z99.81 Dependence on supplemental oxygen; Z83.6 Family history of other diseases of the respiratory system; Z87.440 Personal history of urinary (tract) infections
CPT/HCPCS: 10081; 10203

== ENCOUNTER 2017-08-07 21:37 | Inpatient (IN) | payer OTHER ==
[~2017-08-07] VITALS: Ht 165.1 cm; Wt 73.7 kg
--- NOTE | ~2017-08-07 | EKG ---
[address] [facility] [place] [address] ELECTROCARDIOGRAM REPORT Name: GELY MARTINEZ Room #: 170-6 ADM IN M.R.#: [id number] Admission: 08/07/17 Attend Phys: Prasanth Brady MD Discharge: Date of : 65 Report #: [id number] THIS REPORT FOR: //name// [facility] ED Test Date: 2017-08-07 Test Time: 22:19:00 Pat Name: GELY MARTINEZ Department: Room: 170 Gender: F Ceo & Board Director: MZOOK : 1965 Requested By: Wilfrido Sharp Order Number: [id number] MD: Braxton Lewis Measurements Intervals [place] Rate: 90 P: 80 IN: 160 QRS: 86 QRSD: 94 T: 61 QT: 360 QTc: 441 Interpretive Statements Sinus rhythm Consider left ventricular hypertrophy ST elev, probable normal early repol pattern Compared to ECG 07/06/2017 19:21:12 ST (T wave) deviation now present Electronically Signed On 08-07-2017 23:29:51 THERMAL CUTTER HELPER by Braxton Lewis [email or web address] <ELECTRONICALLY SIGNED> By: Braxton Lewis MD 08/07/17 2329 2219 Braxton Lewis MD /EPI
--- NOTE | ~2017-08-07 | HC ---
[facility] [place] [address] CONSULTATION Name: GELY MARTINEZ Room #: 215-P [facility] IN M.R.#: [id number] Admission: 08/07/17 Attend Phys: Giselle Jordan Discharge: 08/12/17 Date of : 65 Report #: [id number] THIS REPORT FOR: //name// CC: Prasanth Ritter DATE OF SERVICE: 08/08/2017 REFERRING PROVIDER: Prasanth Brady MD REASON FOR CONSULTATION: Respiratory failure. CHIEF COMPLAINT: Shortness of breath. HISTORY OF PRESENT ILLNESS: Our group was asked to evaluate the patient in consultation while hospitalized at [facility], a pleasant 52-year-old woman, well known to our service, followed by Dr. Castellanos of our group for severe chronic obstructive pulmonary disease and chronic hypoxemia on supplemental oxygen and CPAP at night, presented to the Emergency Department with increasing shortness of breath in the last 24 hours, some productive cough. Daughter brought her in for complaints of generalized weakness, sleepiness, slurred speech and some mild altered mental status. The patient was noted to be in hypercapnic respiratory failure and placed on BiPAP overnight. We were asked to see her this morning, evaluated earlier today. The patient was more alert, but on BiPAP, able to speak complained of some epigastric and lower chest discomfort. No fevers, chills or sweats. The patient has received some systemic steroids, Levaquin and bronchodilators is currently on BiPAP with improvement in overall arterial blood gas values. Chest x-ray done in the Emergency Department revealed relatively clear lungs. Currently, he is resting comfortably in the Emergency Room bed on BiPAP. No recent travel. ALLERGIES: INCLUDE CEPHALOSPORIN AND CODEINE. PAST MEDICAL HISTORY: 1. History of very severe chronic obstructive pulmonary disease. 2. Ongoing tobacco abuse. 3. Hypothyroidism. 4. Bipolar disorder. 5. Anxiety disorder. 6. Anxiety. OUTPATIENT MEDICATIONS: Include albuterol, Seroquel, lithium, metoprolol, Synthroid, DuoNeb, Breo inhaler, chlordiazepoxide and systemic steroids frequently. [facility] [address] [place] [address] CONSULTATION Name: GELY MARTINEZ Room #: 215-P [facility] IN M.R.#: [id number] Admission: 08/07/17 Attend Phys: Giselle Jordan Discharge: 08/12/17 Date of : 65 Report #: [id number] SOCIAL HISTORY: Active smoker. No significant alcohol consumption. FAMILY HISTORY: Negative for any significant pulmonary disease. REVIEW OF SYSTEMS: CONSTITUTIONAL: Notes no fevers, chills or sweats. ENT: No upper respiratory congestion, rhinorrhea or dysphagia. CARDIOVASCULAR: Lower chest or epigastric pain. GASTROINTESTINAL: No nausea or vomiting. GENITOURINARY: No dysuria, no frequency. INTEGUMENT: Denies any new rash. MUSCULOSKELETAL: No joint pains or swelling. PHYSICAL EXAMINATION: VITAL SIGNS: The patient is afebrile, pulse 60s, respiratory rate 22 on BiPAP, blood pressure is 90/50. GENERAL: This is a middle-aged woman, appears older than stated age, no distress. HEENT: Clear oropharynx. No thrush. No erythema. NECK: Supple, no lymphadenopathy. LUNGS: Markedly diminished with prolonged expiratory phase with diffuse wheezes. CARDIOVASCULAR: Heart is regular. No murmurs noted. ABDOMEN: Soft, no epigastric tenderness or masses noted. EXTREMITIES: Without edema. They are warm with 2+ pulses. LABORATORY DATA: CBC within normal limits. Chemistry profile: Sodium 141, potassium 4.2, chloride 99, bicarbonate 43, BUN 14, creatinine 0.8, glucose 187. Liver enzymes normal. TSH 5.4. Most recent arterial blood gas on BiPAP of 11/01, FiO2 of 40% revealed pH 7.28, pCO2 of 86, pO2 of 73, lactate was 0.87. Drug of abuse screen positive only for benzodiazepines. No influenza screen performed yet. IMPRESSION: 1. Acute exacerbation of chronic obstructive pulmonary disease, likely due to lower respiratory infection, would be concerned about influenza. 2. Tuocf-ys-ugvgeuz hypercapnic and hypoxemic respiratory failure. 3. History of bipolar affective disorder. 4. Ongoing tobacco abuse. 5. History of obstructive sleep apnea, on nocturnal CPAP at home. 6. Altered mental status, likely related to above. 7. History of hypothyroidism. SUGGESTIONS: 1. Systemic steroid with taper. 2. Continue Levaquin. [address] [address] CONSULTATION Name: GELY MARTINEZ Room #: 215-P [facility] IN M.R.#: [id number] Admission: 08/07/17 Attend Phys: Giselle Jordan Discharge: 08/12/17 Date of : 65 Report #: [id number] 3. Nasal swab for respiratory viral panel. 4. Sputum and blood cultures. 5. Urinary pneumococcal and legionella antigen test. 6. Rapid influenza screen. 7. Guaifenesin. 8. Systemic steroids. 9. Deep venous thrombosis prophylaxis. 10. Follow up arterial blood gas and chest x-ray in a.m. 11. Continue noninvasive positive pressure ventilation. 12. Additional recommendations to follow while hospitalized. Thank you for requesting our suggestions. <ELECTRONICALLY SIGNED> By: lAok Benton MD 08/23/17 1825 1355 1719 Alok Benton MD /nt
[~2017-08-07 21:37] MED LIST changes: +BENZONATATE100 MG PO; +LEVOFLOXACIN750 MG PO; +MUCINEX600 MG PO; +PREDNISONE 20 M20 MG PO
[2017-08-07 21:38] VITALS: BP 101/49
[2017-08-07 22:09] LABS: BE(vivo) 11.4 mmol/L (-2 to +3); HCO3 42.9 mmol/L (22.0-26.0); PCO2 101.8 mmHg (35.0-45.0); PO2 120.6 mmHg (80.0-100.0); pH 7.243 (7.360-7.450); sO2 97.4 % (92.0-98.0)
[2017-08-07 22:16] LABS: BASOPHILS 0.4 % (0.0-2.0); EOSINOPHILS 0.9 % (0.0-3.0); HEMOGLOBIN 12.4 gm/dL (12.0-15.0); LYMPHOCYTES 6.9 % (24.0-44.0); MCH 28.9 pg (26.0-34.0); MCHC 31.7 g/dL (28.0-37.0); MCV 91.1 fL (80.0-100.0); MONOCYTES 4.3 % (1.0-8.0); PLATELET COUNT 167 thou/uL (150-400); POLYS 87.5 % (36.0-66.0); RBC 4.28 mil/uL (4.20-5.00); RDW 15.3 % (10.5-14.5); WBC 9.2 thou/uL (4.0-11.0)
[2017-08-07 22:23] LABS: ANION GAP < 0 mmol/L (7-16); BUN 14 mg/dL (7-18); CALCIUM 9.1 mg/dL (8.5-10.1); CHLORIDE 99 mmol/L (98-107); CO2 43 mmol/L (21-32); CREATININE 0.8 mg/dL (0.6-1.0); GLUCOSE 187 mg/dL (74-106); POTASSIUM 4.2 mmol/L (3.5-5.1); SODIUM 141 mmol/L (136-145)
[2017-08-07 22:32] LABS: AMP/METHAMP Negative (Negative); BARBITURATES Negative (Negative); BENZODIAZEPINES POSITIVE (Negative); COCAINE Negative (Negative); METHADONE Negative (Negative); OPIATES Negative (Negative); PCP Negative (Negative)
[2017-08-07 22:32] LABS: ALBUMIN 3.1 g/dL (3.4-5.0); MAGNESIUM 2.1 mg/dL (1.8-2.4); SGOT 13 U/L (15-37); SGPT 17 U/L (30-65); TOTAL BILIRUBIN 0.1 mg/dL (<0.1-1.0); TOTAL PROTEIN 6.7 g/dL (6.4-8.2); TROPONIN-I < 0.04 ng/mL (<0.06)
[2017-08-08] VITALS (14 sets, daily range): BP systolic 93–105; BP diastolic 58–68
[2017-08-08 00:58] LABS: BE(vivo) 13.1 mmol/L (-2 to +3); HCO3 43.8 mmol/L (22.0-26.0); PO2 57.6 mmHg (80.0-100.0); sO2 85.3 % (92.0-98.0)
[2017-08-08 01:02] LABS: PCO2 90.2 mmHg (35.0-45.0); pH 7.304 (7.360-7.450)
[2017-08-08 05:09] LABS: BE(vivo) 8.7 mmol/L (-2 to +3); HCO3 39.7 mmol/L (22.0-26.0); PO2 123.6 mmHg (80.0-100.0); sO2 97.6 % (92.0-98.0)
[2017-08-08 05:13] LABS: PCO2 94.7 mmHg (35.0-45.0)
[2017-08-08 07:12] LABS: BE(vivo) 6.4 mmol/L (-2 to +3); HCO3 37.2 mmol/L (22.0-26.0); PCO2 92.8 mmHg (35.0-45.0); PO2 244.8 mmHg (80.0-100.0); pH 7.221 (7.360-7.450); sO2 99.3 % (92.0-98.0)
[2017-08-08 10:21] LABS: BE(vivo) 10.1 mmol/L (-2 to +3); PO2 73.2 mmHg (80.0-100.0); sO2 91.9 % (92.0-98.0)
[2017-08-08 10:22] LABS: PCO2 86.4 mmHg (35.0-45.0); pH 7.283 (7.360-7.450)
[2017-08-09] VITALS (21 sets, daily range): BP systolic 82–126; BP diastolic 51–96
[2017-08-09 05:24] LABS: BE(vivo) 5.6 mmol/L (-2 to +3); HCO3 33.4 mmol/L (22.0-26.0); PCO2 65.8 mmHg (35.0-45.0); sO2 91.6 % (92.0-98.0)
[2017-08-09 05:25] LABS: pH 7.323 (7.360-7.450)
[2017-08-10 01:03] VITALS: BP 110/60
[2017-08-10 06:16] VITALS: BP 107/58
[2017-08-10 10:06] VITALS: BP 118/79
[2017-08-10 11:12] VITALS: BP 129/79
[2017-08-10 15:57] VITALS: BP 105/61
[2017-08-10 20:30] VITALS: BP 110/69
[2017-08-11 04:24] LABS: HEMATOCRIT 37.8 % (37.0-47.0); MCHC 31.7 g/dL (28.0-37.0); MCV 91.7 fL (80.0-100.0); RBC 4.12 mil/uL (4.20-5.00); RDW 15.6 % (10.5-14.5); WBC 6.4 thou/uL (4.0-11.0)
[2017-08-11 04:30] VITALS: BP 123/78
[2017-08-11 04:37] LABS: CALCIUM 8.9 mg/dL (8.5-10.1); CREATININE 0.7 mg/dL (0.6-1.0); POTASSIUM 4.6 mmol/L (3.5-5.1)
[2017-08-11 11:25] VITALS: BP 115/71
[2017-08-11 15:17] VITALS: BP 107/60
[2017-08-11 19:37] VITALS: BP 128/77
[2017-08-11 23:07] LABS: GLYCOHEMOGLOBIN (HGB A1C) 5.1 % (4.8-5.6)
[2017-08-12 04:05] VITALS: BP 108/70
[2017-08-12 05:28] LABS: CALCIUM 8.1 mg/dL (8.5-10.1); CREATININE 0.6 mg/dL (0.6-1.0); POTASSIUM 4.7 mmol/L (3.5-5.1)
[2017-08-12 08:00] VITALS: BP 114/83
[2017-08-12 09:45] VITALS: BP 114/83
[2017-08-12 09:47] VITALS: BP 114/83
[2017-08-12 11:16] VITALS: BP 114/83
[2017-11-14] MEDS ORDERED: PREDNISONE 20 M20 M1 PO (13:26)
[2017-11-14] MEDS ORDERED: LEVAQUIN 750 M750 MG PO (13:26)
== END 2017-08-12 11:40 | disposition home or self-care (01) | DRG 189 ==
LOC: ER 21:37 → EROBS 23:00 → ICU 23:00 → 2N 08-09 18:36
PROVIDERS: Emergency Medicine; Hospitalist; Internal Medicine Endocrinology, Diabetes & Metabolism; Internal Medicine Pulmonary Disease
PROC: 5A09357 Assistance with Respiratory Ventilation, Less than 24 Consecutive Hours, Continuous Positive Airway Pressure (ICD-10-PCS; principal; 2017-08-09)
PROC: 5A09357 Assistance with Respiratory Ventilation, Less than 24 Consecutive Hours, Continuous Positive Airway Pressure (ICD-10-PCS; 2017-08-10)
PROC: 5A09357 Assistance with Respiratory Ventilation, Less than 24 Consecutive Hours, Continuous Positive Airway Pressure (ICD-10-PCS; 2017-08-11)
PROC: 5A09357 Assistance with Respiratory Ventilation, Less than 24 Consecutive Hours, Continuous Positive Airway Pressure (ICD-10-PCS; 2017-08-12)
DX: J96.22 Acute and chronic respiratory failure with hypercapnia (principal); J44.1 Chronic obstructive pulmonary disease with (acute) exacerbation; E03.9 Hypothyroidism, unspecified; F31.9 Bipolar disorder, unspecified; F41.9 Anxiety disorder, unspecified; J96.21 Acute and chronic respiratory failure with hypoxia; G47.33 Obstructive sleep apnea (adult) (pediatric); G89.29 Other chronic pain; M54.9 Dorsalgia, unspecified; F17.210 Nicotine dependence, cigarettes, uncomplicated; R73.9 Hyperglycemia, unspecified; M19.90 Unspecified osteoarthritis, unspecified site; Z87.440 Personal history of urinary (tract) infections; Z79.899 Other long term (current) drug therapy; Z79.52 Long term (current) use of systemic steroids; Z88.5 Allergy status to narcotic agent; Z88.8 Allergy status to other drugs, medicaments and biological substances; Z90.710 Acquired absence of both cervix and uterus; Z82.49 Family history of ischemic heart disease and other diseases of the circulatory system; Z82.5 Family history of asthma and other chronic lower respiratory diseases
CPT/HCPCS: 10081; 10203

== ENCOUNTER 2017-09-01 10:54 | Inpatient (IN) | payer OTHER ==
[~2017-09-01] VITALS: Ht 165.1 cm; Wt 61.2 kg
--- NOTE | ~2017-09-01 | HC ---
[facility] [place] [address] CONSULTATION Name: GELY MARTINEZ Room #: 363-P [facility] IN ..#: [id number] Admission: 09/01/17 Attend Phys: Prasanth Brady MD Discharge: 09/03/17 Date of : 65 Report #: [id number] THIS REPORT FOR: //name// CC: Prasanth Ritter REFERRING PHYSICIAN: Dr. Prasanth Brady. REASON FOR CONSULTATION: Hypoxia, COPD. HISTORY OF PRESENT ILLNESS: The patient is a 52-year-old white female with COPD, presents to the Emergency Room following a fall. She sustained a back injury. She has underlying severe COPD. A pulmonary consultation was requested. The patient has follow up by Dr. Nima Castellanos in the office. She has known severe COPD. Her previous baseline FEV1 measured 0.59 liters or 20% predicted. She is oxygen dependent at 4 liters at home. She still smokes less than a pack a day. She also has bipolar disorder, which compounds her medical treatment. She was in her usual state of health until yesterday evening when she slipped and fell on her back, injuring her back. For that reason, she presented to the Emergency Room. She now complains of back pain. Otherwise, denies any dyspnea, night sweats, chills, chest pain or productive cough. PAST MEDICAL HISTORY: COPD, severe impairment, baseline FEV1 0.59 liters or 20% predicted; tobacco abuse; bipolar disorder; NIYAH on home CPAP; hypothyroidism; anxiety disorder; chronic back pain; osteoarthritis; history of thrombocytopenia. PAST SURGICAL HISTORY: Status post cataract surgery, hysterectomy. ALLERGIES: CEPHALOSPORINS, reactions as specified; CODEINE causes nausea. HOME MEDICATIONS: Include ProAir, quetiapine fumarate 200 mg p.o. b.i.d., nebulized DuoNeb q.i.d. p.r.n., lithium 600 mg once a day, Breo 200/25 mcg 1 puff b.i.d., Lopressor, Seroquel, Synthroid, Incruse, lamotrigine, Cogentin, Mobic. FAMILY HISTORY: Noncontributory. SOCIAL HISTORY: She is . Continues to smoke less than a pack a day. She denies any alcohol use. She is disabled. [address] [address] CONSULTATION Name: GELY MARTINEZ Room #: 363-P [facility].#: [id number] Admission: 09/01/17 Attend Phys: Prasanth Brady MD Discharge: 09/03/17 Date of : 65 Report #: [id number] REVIEW OF SYSTEMS: As mentioned above, otherwise 10-point system review negative. PHYSICAL EXAMINATION: GENERAL: She is awake, alert, in mild distress due to back pain. VITAL SIGNS: Temperature is 98.5 degrees Fahrenheit, pulse is 80, respiratory rate is 20, blood pressure 104/57 mmHg, saturation 98%. HEENT: Normocephalic, atraumatic. NECK: Supple, without any lymphadenopathy or thyromegaly. CHEST: Breath sounds are decreased bilaterally, mildly prolonged expiratory phase. No obvious wheezes. CARDIOVASCULAR: Normal S1, S2. No murmurs or gallop. There is no JVD. There is no carotid bruit. Pulses are 2+/4+ bilaterally. ABDOMEN: Soft, nontender, no organomegaly or masses felt. GENITOURINARY: Deferred. RECTAL: Deferred. EXTREMITIES: There is no edema, cyanosis or clubbing. LABORATORY DATA: Portable chest x-ray shows clear lung gomez. CT of the lumbosacral spine shows no acute fractures. Multilevel mild disk bulging is noted in the lumbar area. Arterial blood gas on admission revealed pH 7.29, pCO2 87, pO2 136 on 4 liters of O2. Sodium 140, potassium 4.4, chloride 100, CO2 is 41, BUN is 15, creatinine is 0.7. WBC 11,300, hemoglobin is 12.6, platelets are normal. IMPRESSION: 1. Recent fall with back pain, management per primary care team. 2. Hxvtv-zz-kdscabi hypercapnic hypoxic respiratory failure. 3. Tobacco abuse. 4. Bipolar disorder. RECOMMENDATION: We will try to keep saturation around 88-90% to avoid paradoxical hypercapnia. Clinically, she appears to be well compensated. We will allow the patient to compensate. We will try to minimize narcotics as much as possible, though this will be difficult given her recent fall and bipolar disorder. We will continue bronchodilators. I do not think she needs pulse corticosteroids at this time. DVT and GI prophylaxis will be addressed. <ELECTRONICALLY SIGNED> By: Glen Bee MD 09/03/17 1602 [id number] Glen Bee MD /nt
[2017-09-01 10:58] VITALS: BP 115/75
[2017-09-01 11:52] LABS: BE(vivo) 11.4 mmol/L (-2 to +3); HCO3 41.7 mmol/L (22.0-26.0); PO2 136.8 mmHg (80.0-100.0); sO2 98.3 % (92.0-98.0)
[2017-09-01 11:53] LABS: PCO2 87.8 mmHg (35.0-45.0); pH 7.294 (7.360-7.450)
[2017-09-01 12:28] LABS: ABSOLUTE NEUTROPHILS 9.4 thou/uL (1.4-8.2); BASOPHILS 0.3 % (0.0-2.0); EOSINOPHILS 0.3 % (0.0-3.0); HEMATOCRIT 39.7 % (37.0-47.0); HEMOGLOBIN 12.6 gm/dL (12.0-15.0); LYMPHOCYTES 12.4 % (24.0-44.0); MCHC 31.6 g/dL (28.0-37.0); MCV 91.5 fL (80.0-100.0); PLATELET COUNT 153 thou/uL (150-400); RBC 4.34 mil/uL (4.20-5.00); RDW 14.6 % (10.5-14.5); WBC 11.3 thou/uL (4.0-11.0)
[2017-09-01 12:37] LABS: ANION GAP < 0 mmol/L (7-16); BUN 15 mg/dL (7-18); CALCIUM 9.4 mg/dL (8.5-10.1); CHLORIDE 100 mmol/L (98-107); CO2 41 mmol/L (21-32); CREATININE 0.7 mg/dL (0.6-1.0); GLUCOSE 89 mg/dL (74-106); POTASSIUM 4.4 mmol/L (3.5-5.1); SODIUM 140 mmol/L (136-145)
[2017-09-01 13:05] LABS: BE(vivo) 12.5 mmol/L (-2 to +3); HCO3 42.3 mmol/L (22.0-26.0); PCO2 84.4 mmHg (35.0-45.0); PO2 64.9 mmHg (80.0-100.0); pH 7.318 (7.360-7.450); sO2 89.8 % (92.0-98.0)
[2017-09-01 13:40] VITALS: BP 89/61
[2017-09-01 14:06] VITALS: BP 100/61
[2017-09-01 15:04] VITALS: BP 115/70
[2017-09-01 19:30] VITALS: BP 109/49
[2017-09-02] VITALS: BP 128/85
[2017-09-02 03:49] VITALS: BP 102/63
[2017-09-02 05:29] LABS: BE(vivo) 7.5 mmol/L (-2 to +3); HCO3 35.9 mmol/L (22.0-26.0); PO2 84.2 mmHg (80.0-100.0); pH 7.328 (7.360-7.450); sO2 95.2 % (92.0-98.0)
[2017-09-02 07:43] VITALS: BP 116/52
[2017-09-02 15:23] VITALS: BP 104/57
[2017-09-02 19:10] VITALS: BP 99/53
[2017-09-03 04:00] VITALS: BP 96/57
[2017-09-03 07:15] VITALS: BP 93/58
[2017-09-03] MEDS ORDERED: PREDNISONE 10 M10 MG PO (09:06)
[2017-09-03] MEDS ORDERED: HYDROCODON-ACE1 EAC7 PO (09:06)
[2017-09-03] MEDS ORDERED: CYCLOBENZAPRINE5 MG PO (09:07)
[2017-09-03 09:27] VITALS: BP 93/58
[2017-11-14] MEDS ORDERED: LEVAQUIN 750 M750 MG PO (13:26)
[2017-11-14] MEDS ORDERED: PREDNISONE 20 M20 M1 PO (13:26)
== END 2017-09-03 12:54 | disposition home or self-care (01) | DRG 189 ==
LOC: ER 10:54 → EROBS 13:20 → 3W 13:20
PROVIDERS: Emergency Medicine; Hospitalist
PROC: 5A09357 Assistance with Respiratory Ventilation, Less than 24 Consecutive Hours, Continuous Positive Airway Pressure (ICD-10-PCS; principal; 2017-09-01)
DX: J96.21 Acute and chronic respiratory failure with hypoxia (principal); G93.40 Encephalopathy, unspecified; J44.1 Chronic obstructive pulmonary disease with (acute) exacerbation; J96.22 Acute and chronic respiratory failure with hypercapnia; E03.9 Hypothyroidism, unspecified; F31.9 Bipolar disorder, unspecified; G47.33 Obstructive sleep apnea (adult) (pediatric); F41.9 Anxiety disorder, unspecified; G89.29 Other chronic pain; M54.9 Dorsalgia, unspecified; F17.210 Nicotine dependence, cigarettes, uncomplicated; M19.90 Unspecified osteoarthritis, unspecified site; W18.39XA Other fall on same level, initial encounter; Z90.710 Acquired absence of both cervix and uterus; Z87.440 Personal history of urinary (tract) infections; Z79.899 Other long term (current) drug therapy; Z88.8 Allergy status to other drugs, medicaments and biological substances; Z88.5 Allergy status to narcotic agent; Y93.89 Activity, other specified; Y92.098 Other place in other non-institutional residence as the place of occurrence of the external cause; Y99.8 Other external cause status; Z82.49 Family history of ischemic heart disease and other diseases of the circulatory system; Z82.5 Family history of asthma and other chronic lower respiratory diseases
CPT/HCPCS: 10879

== ENCOUNTER 2017-09-13 14:11 | Inpatient (IN) | payer OTHER ==
[~2017-09-13] VITALS: Ht 165.1 cm; Wt 62.6 kg
--- NOTE | ~2017-09-13 | HC ---
[facility] [place] [address] CONSULTATION Name: GELY MARTINEZ Room #: 205-P [facility] IN M.R.#: [id number] Admission: 09/13/17 Attend Phys: Prasanth Brady MD Discharge: 09/20/17 Date of : 65 Report #: [id number] THIS REPORT FOR: //name// CC: Prasanth Ritter DATE OF SERVICE: 09/14/2017 REFERRING PROVIDER: Prasanth Brady MD. REASON FOR CONSULTATION: Pneumonia. CHIEF COMPLAINT: Altered mental status and shortness of breath. HISTORY OF PRESENT ILLNESS: Our group was asked to evaluate the patient. She is known to our service, has a history of very severe COPD, typically on supplemental oxygen at home and nocturnal BiPAP, ongoing tobacco use, but quit after last hospital stay, has been hospitalized now for the third time this year. According to family, the patient was confused. The patient had just been discharged on Levaquin and steroids. The patient had ongoing productive cough, difficulty clearing. No fevers or chills. The patient remains a little bit confused at this time and believe she has been here for 4 days, although she came in yesterday. Currently, does not appear in any distress, but generalized weakness is noted, although ambulate in the halls with physical therapy only moments before my evaluation. ALLERGIES: INCLUDE CEPHALOSPORINS AND CODEINE. PAST MEDICAL HISTORY: 1. Severe COPD. 2. Chronic hypoxemic respiratory failure. 3. Ongoing tobacco use, recently quit. 4. Bipolar disorder. 5. Anxiety disorder. 6. Hypothyroidism. 7. Hypercapnic respiratory failure requiring nocturnal support with BiPAP. OUTPATIENT MEDICATIONS: Include albuterol, Seroquel, lithium, metoprolol, Synthroid, DuoNeb, Breo inhaler, chlordiazepoxide, systemic steroids frequently. SOCIAL HISTORY: Had been an active smoker up until most recent admission. No significant alcohol consumption. FAMILY HISTORY: Negative for any significant pulmonary disease. REVIEW OF SYSTEMS: [facility] [address] [place] [address] CONSULTATION Name: GELY MARTINEZ Room #: [address] [place] [address].#: [id number] Admission: 09/13/17 Attend Phys: Prasanth Brady MD Discharge: 09/20/17 Date of : 65 Report #: [id number] CONSTITUTIONAL: Some generalized confusion. No fever, chills or sweats. ENT: No upper respiratory congestion or rhinorrhea. CARDIOVASCULAR: No chest pain or palpitations. GASTROINTESTINAL: Mild epigastric pain, but no nausea or vomiting. GENITOURINARY: No dysuria, no frequency. INTEGUMENT: Denies any rash. MUSCULOSKELETAL: No joint pains or swelling. PULMONARY: As described in HPI. PHYSICAL EXAMINATION: VITAL SIGNS: Temperature is afebrile, pulse 90s, respiratory rate 16, blood pressure 93/64, oxygen saturation 94% on 4 liters nasal cannula. GENERAL: This is a middle-aged woman, somewhat confused, but no distress. HEENT: Clear oropharynx. NECK: Supple, no lymphadenopathy. LUNGS: Coarse rhonchi throughout with some crackles on the right base. CARDIOVASCULAR: Heart regular. Cannot appreciate any murmurs. ABDOMEN: Soft, nontender, no masses. EXTREMITIES: Warm, 2+ pulses, no edema. INTEGUMENT: No rash. LABORATORY DATA: White blood cell count 15,000, hemoglobin 13, hematocrit 41, platelet count 222. Sodium 138, potassium 3.8, chloride 95, bicarbonate BUN 10, creatinine 0.6, glucose 164. Procalcitonin 4.66. Arterial blood gas done on 6 liters revealed pH 7.33, pCO2 of 76, pO2 of 69, bicarbonate 39. Chest x-ray with hyperinflation consistent with COPD, development of new when compared to recent films, bilateral right greater than left lower lobe infiltrates, small effusions. IMPRESSION: 1. Healthcare-associated pneumonia, would also be concerned about aspiration given the location of these findings. 2. Confusional state likely related to medications and acute illness possibly from hypoxemia at home. 3. Acute on chronic hypoxemic respiratory failure. 4. Chronic hypercapnic respiratory failure. 5. Bipolar disorder. 6. Possible pleural effusion. SUGGESTIONS: 1. Follow up arterial blood gas. 2. Follow up chest x-ray. 3. Antibiotics per Infectious Disease service. 4. IPV, Mucinex, and Mucomyst to assist with airway clearance. 5. Sputum and blood cultures. [address] [address] CONSULTATION Name: MICH MARTINEZAnthony Eunice Room #: 205-P [facility] IN M.R.#: [id number] Admission: 09/13/17 Attend Phys: Prasanth Brady MD Discharge: 09/20/17 Date of : 65 Report #: [id number] 6. Continuous oximetry. 7. Further recommendations to follow. Discussed with Dr. Wilfrido Maciel. <ELECTRONICALLY SIGNED> By: Alok Benton MD 09/29/17 1452 [id number] Alok Benton MD /nt
--- NOTE | ~2017-09-13 | EKG ---
[place] [address] 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: DELVIN : 1965 Requested By: Adis Dillard Order Number: [id number] MD: Raudel Wolf Measurements Intervals [place] Rate: 125 P: 96 ID: 80 QRS: 103 QRSD: 91 T: 28 QT: 298 QTc: 430 Interpretive Statements Sinus tachycardia Right atrial abnormality Right axis deviation Abnormal R-wave progression, late transition Compared to ECG 08/07/2017 22:19:00 Heart rate has increased Electronically Signed On 09-14-2017 8:27:19 MILLWRIGHT HEL[employer] by Raudel Wolf [email or web address] <ELECTRONICALLY SIGNED> By: Raudel Wolf MD, [facility] 09/14/17 0827 1431 1431 Raudel Wolf MD, [facility] /EPI
--- NOTE | ~2017-09-13 | HC ---
[facility] [place] [address] CONSULTATION Name: GELY MARTINEZ Room #: 354-P ADM IN M.R.#: [id number] Admission: 09/13/17 Attend Phys: Prasanth Brady MD Discharge: Date of : 65 Report #: [id number] THIS REPORT FOR: //name// CC: Prasanth Ritter REASON FOR CONSULTATION: I was asked to evaluate concerning bilateral pneumonia in the setting of steroid dependent COPD. HISTORY OF PRESENT ILLNESS: The patient has been hospitalized several times in the last 2 months with respiratory tract infection, fall and back pain, now returns with complaints of shortness of breath. No fever, chills, or sweats. She just completed a course of Levaquin last week. She continues on prednisone. She remains on her oxygen per nasal cannula. This morning, she was unable to give me much detail of her history. She was confused, anxious and wanted to go home. She did know she was at [facility], but then would state that she was not at [facility] and did not recognize any of the people or the facility. No reported trauma. Minimal cough with no sputum production. She was started on vancomycin, Levaquin and Zosyn. ALLERGIES: CEPHALOSPORINS reported; however, the patient has tolerated cephalosporins and penicillins. CODEINE with nausea. MEDICATIONS: As noted on her MAR, which was reviewed. Her outpatient medications included Meloxicam, Cogentin, lamotrigine, chlordiazepoxide, umeclidinium, levothyroxine, Seroquel, Lopressor, Breo, lithium, DuoNeb, and albuterol. PAST MEDICAL HISTORY: Hypothyroidism, COPD, smoker, bipolar, asthma, obstructive sleep apnea, anxiety, pneumonia, cataracts, hysterectomy, UTI, thrombocytopenia, chronic back pain, and arthritis. FAMILY HISTORY: Noncontributory. SOCIAL HISTORY: Smoker of cigarettes. No significant alcohol intake. Lives with her . REVIEW OF SYSTEMS: Denies any chest pain, nausea, vomiting, diarrhea, dysuria or frequency. No rash. PHYSICAL EXAMINATION: VITAL SIGNS: The patient was afebrile and hemodynamically stable. She is a bit anxious. She was on 4 liters per nasal cannula. GENERAL: She was hirsute. Mild cushingoid. HEENT: Unremarkable. NECK: Supple. [address] [address] CONSULTATION Name: GELY MARTINEZ Room #: 354-P ADM IN M.R.#: [id number] Admission: 09/13/17 Attend Phys: Prasanth Brady MD Discharge: Date of : 65 Report #: [id number] LUNGS: Basilar crackles. No consolidation. HEART: Regular without murmur. ABDOMEN: Soft and nontender. BACK: Nontender. EXTREMITIES: Unremarkable. LABORATORY STUDIES: Sodium 138, potassium 3.8, bicarbonate 34, creatinine 0.6. Procalcitonin is 4.6. Hemoglobin 13.3, white count 15, platelet count 222,000. ABG on 6 liters showed a pO2 of 68, pCO2 of 75, pH 7.3. Chest x-ray compared to 09/01/2017, showed development of bilateral lower lobe infiltrates, right greater than left. IMPRESSION: This is a 52-year-old with chronic obstructive pulmonary disease and asthma, on steroids and inhalers who has had frequent hospitalizations most recently, now with basilar infiltrates. We will screen for community and healthcare-associated infection. Treat for such. Follow CBC and chest x-ray. Discussed with nursing staff. Psychiatric meds are being adjusted. <ELECTRONICALLY SIGNED> By: Wilfrido Maciel MD 09/15/17 1002 1048 1629 Wilfrido Maciel MD /nt
[~2017-09-13 14:11] MED LIST changes: +CYCLOBENZAPRINE5 MG PO; +HYDROCODON-ACE1 EAC7 PO
[2017-09-13 14:12] VITALS: BP 122/68
[2017-09-13 14:38] LABS: HEMATOCRIT 41.2 % (37.0-47.0); HEMOGLOBIN 13.3 gm/dL (12.0-15.0); MCH 28.9 pg (26.0-34.0); MCHC 32.2 g/dL (28.0-37.0); MCV 89.9 fL (80.0-100.0); RBC 4.58 mil/uL (4.20-5.00); RDW 14.5 % (10.5-14.5)
[2017-09-13 14:43] LABS: ANION GAP 4 mmol/L (7-16); BUN 13 mg/dL (7-18); CALCIUM 9.6 mg/dL (8.5-10.1); CHLORIDE 94 mmol/L (98-107); CO2 38 mmol/L (21-32); CREATININE 0.6 mg/dL (0.6-1.0); GLUCOSE 116 mg/dL (74-106); POTASSIUM 4.2 mmol/L (3.5-5.1); SODIUM 136 mmol/L (136-145)
[2017-09-13 14:51] LABS: TROPONIN-I < 0.04 ng/mL (<0.06)
[2017-09-13 14:59] LABS: BE(vivo) 9.8 mmol/L (-2 to +3); PCO2 75.5 mmHg (35.0-45.0); PO2 68.9 mmHg (80.0-100.0); pH 7.331 (7.360-7.450); sO2 91.8 % (92.0-98.0)
[2017-09-13 16:30] VITALS: BP 128/72
[2017-09-13 17:17] VITALS: BP 106/69
[2017-09-13 17:25] VITALS: BP 116/72
[2017-09-13 20:20] VITALS: BP 101/51; BP 4101/51
[2017-09-13 23:15] VITALS: BP 105/71
[2017-09-14 03:30] VITALS: BP 103/72
[2017-09-14 05:36] LABS: CALCIUM 8.9 mg/dL (8.5-10.1); CREATININE 0.6 mg/dL (0.6-1.0); MAGNESIUM 1.9 mg/dL (1.8-2.4)
[2017-09-14 06:01] LABS: POTASSIUM 3.8 mmol/L (3.5-5.1)
[2017-09-14 08:44] VITALS: BP 93/64
[2017-09-14 16:14] VITALS: BP 109/67
[2017-09-14 19:09] VITALS: BP 115/66
[2017-09-15] VITALS (18 sets, daily range): BP systolic 93–132; BP diastolic 60–108
[2017-09-15 05:44] LABS: ABSOLUTE NEUTROPHILS 9.7 thou/uL (1.4-8.2); LYMPHOCYTES 2.1 % (24.0-44.0); MCH 29.2 pg (26.0-34.0); MCV 91.5 fL (80.0-100.0); MONOCYTES 2.6 % (1.0-8.0); PLATELET COUNT 153 thou/uL (150-400); POLYS 95.3 % (36.0-66.0); RBC 3.72 mil/uL (4.20-5.00); RDW 14.3 % (10.5-14.5); WBC 10.2 thou/uL (4.0-11.0)
[2017-09-15 05:50] LABS: HEMOGLOBIN 10.9 gm/dL (12.0-15.0)
[2017-09-15 05:54] LABS: CALCIUM 9.5 mg/dL (8.5-10.1); CREATININE 0.6 mg/dL (0.6-1.0); POTASSIUM 4.2 mmol/L (3.5-5.1)
[2017-09-15] MEDS ORDERED: AZITHROMYCIN 2250 MG PO (09:38)
[2017-09-15] MEDS ORDERED: PREDNISOLONE 5 M5 MG PO (09:38)
[2017-09-15] MEDS ORDERED: OSELB75 PO (09:38)
[2017-09-15] MEDS ORDERED: CEFDINIR300 MG PO (10:06)
[2017-09-15 10:57] LABS: BE(vivo) 6.5 mmol/L (-2 to +3); HCO3 35.5 mmol/L (22.0-26.0); PCO2 77.7 mmHg (35.0-45.0); PO2 72.2 mmHg (80.0-100.0); pH 7.278 (7.360-7.450); sO2 91.8 % (92.0-98.0)
[2017-09-15 12:39] LABS: AMP/METHAMP Negative (Negative); BARBITURATES Negative (Negative); BENZODIAZEPINES POSITIVE (Negative); COCAINE Negative (Negative); METHADONE Negative (Negative); OPIATES Negative (Negative); PCP Negative (Negative)
[2017-09-15 16:00] LABS: BE(vivo) 5.4 mmol/L (-2 to +3); HCO3 34.8 mmol/L (22.0-26.0); PO2 75.1 mmHg (80.0-100.0); pH 7.299 (7.360-7.450); sO2 93.1 % (92.0-98.0)
[2017-09-15 16:01] LABS: PCO2 72.5 mmHg (35.0-45.0)
[2017-09-15 20:35] LABS: BE(vivo) 5.1 mmol/L (-2 to +3); PCO2 59.1 mmHg (35.0-45.0); PO2 91.9 mmHg (80.0-100.0); pH 7.352 (7.360-7.450); sO2 96.5 % (92.0-98.0)
[2017-09-16] VITALS (17 sets, daily range): BP systolic 95–132; BP diastolic 58–94
[2017-09-16 05:12] LABS: BE(vivo) 5.7 mmol/L (-2 to +3); HCO3 35.1 mmol/L (22.0-26.0); PCO2 80.9 mmHg (35.0-45.0); PO2 194.7 mmHg (80.0-100.0); pH 7.255 (7.360-7.450); sO2 99.1 % (92.0-98.0)
[2017-09-16 06:22] LABS: BASOPHILS 0.1 % (0.0-2.0); HEMATOCRIT 31.3 % (37.0-47.0); HEMOGLOBIN 9.9 gm/dL (12.0-15.0); LYMPHOCYTES 4.6 % (24.0-44.0); MCH 29.3 pg (26.0-34.0); MCHC 31.8 g/dL (28.0-37.0); MCV 92.3 fL (80.0-100.0); MONOCYTES 4.8 % (1.0-8.0); PLATELET COUNT 163 thou/uL (150-400); POLYS 90.5 % (36.0-66.0); RBC 3.39 mil/uL (4.20-5.00); RDW 14.6 % (10.5-14.5); WBC 8.8 thou/uL (4.0-11.0)
[2017-09-16 06:36] LABS: ALBUMIN 2.1 g/dL (3.4-5.0); ANION GAP < 0 mmol/L (7-16); BUN 21 mg/dL (7-18); CALCIUM 9.1 mg/dL (8.5-10.1); CHLORIDE 106 mmol/L (98-107); CO2 39 mmol/L (21-32); CREATININE 0.6 mg/dL (0.6-1.0); GLUCOSE 113 mg/dL (74-106); POTASSIUM 4.4 mmol/L (3.5-5.1); SGOT 40 U/L (15-37); SGPT 37 U/L (30-65); SODIUM 144 mmol/L (136-145); TOTAL BILIRUBIN 0.2 mg/dL (<0.1-1.0); TOTAL PROTEIN 5.8 g/dL (6.4-8.2)
[2017-09-17] VITALS (22 sets, daily range): BP systolic 111–156; BP diastolic 50–86
[2017-09-17 05:09] LABS: HEMATOCRIT 34.4 % (37.0-47.0); HEMOGLOBIN 10.9 gm/dL (12.0-15.0); MCH 29.2 pg (26.0-34.0); MCHC 31.6 g/dL (28.0-37.0); MCV 92.4 fL (80.0-100.0); RBC 3.73 mil/uL (4.20-5.00); RDW 14.4 % (10.5-14.5); WBC 5.1 thou/uL (4.0-11.0)
[2017-09-17 05:14] LABS: BE(vivo) 8.6 mmol/L (-2 to +3); HCO3 35.6 mmol/L (22.0-26.0); PCO2 62.5 mmHg (35.0-45.0); pH 7.374 (7.360-7.450); sO2 95.5 % (92.0-98.0)
[2017-09-17 05:16] LABS: ANION GAP < 0 mmol/L (7-16); BUN 18 mg/dL (7-18); CALCIUM 8.7 mg/dL (8.5-10.1); CHLORIDE 103 mmol/L (98-107); CO2 40 mmol/L (21-32); CREATININE 0.5 mg/dL (0.6-1.0); GLUCOSE 105 mg/dL (74-106); POTASSIUM 4.6 mmol/L (3.5-5.1); SODIUM 142 mmol/L (136-145)
[2017-09-18] VITALS (21 sets, daily range): BP systolic 99–166; BP diastolic 59–90
[2017-09-19 02:06] LABS: ADENOVIRUS Negative (Negative); INFLUENZA A Positive (Negative); INFLUENZA B Negative (Negative); METAPNEUMOVIRUS Negative (Negative); PARAINFLUENZA 1 Negative (Negative); PARAINFLUENZA 2 Negative (Negative); PARAINFLUENZA 3 Negative (Negative); RHINOVIRUS Negative (Negative); RSV A Negative (Negative); RSV B Negative (Negative)
[2017-09-19 04:48] VITALS: BP 107/67
[2017-09-19 07:00] VITALS: BP 110/69
[2017-09-19 11:15] VITALS: BP 113/71
[2017-09-19 15:15] VITALS: BP 147/68
[2017-09-19 20:07] VITALS: BP 109/78
[2017-09-20 05:03] VITALS: BP 101/49
[2017-09-20 07:50] VITALS: BP 131/79
[2017-09-20 11:10] LABS: HEMATOCRIT 42.4 % (37.0-47.0); HEMOGLOBIN 13.9 gm/dL (12.0-15.0); MCH 29.6 pg (26.0-34.0); MCHC 32.9 g/dL (28.0-37.0); MCV 89.9 fL (80.0-100.0); RBC 4.72 mil/uL (4.20-5.00); RDW 14.2 % (10.5-14.5); WBC 9.2 thou/uL (4.0-11.0)
[2017-09-20 11:20] LABS: CALCIUM 9.6 mg/dL (8.5-10.1); CREATININE 0.9 mg/dL (0.6-1.0); MAGNESIUM 2.2 mg/dL (1.8-2.4); POTASSIUM 4.3 mmol/L (3.5-5.1)
[2017-09-20 12:28] VITALS: BP 111/61
[2017-09-20] MEDS ORDERED: BENZTROPINE MES1 MG PO (13:29)
[2017-09-20] MEDS ORDERED: ESKALITH300 MG PO (13:29)
[2017-09-20] MEDS ORDERED: SYNTHROID150 MCG PO (13:29)
[2017-09-20] MEDS ORDERED: PREDNISONE 10 M10 MG PO (13:29)
[2017-09-20] MEDS ORDERED: CHLORDIAZEPOXIDE5 M2 PO (13:29)
[2017-09-20] MEDS ORDERED: CEFDINIR300 MG PO (13:29)
[2017-09-20] MEDS ORDERED: SEROQUEL 100 M100 M2 PO (13:29)
[2017-09-20 14:41] VITALS: BP 118/82
[2017-11-14] MEDS ORDERED: LEVAQUIN 750 M750 MG PO (13:26)
[2017-11-14] MEDS ORDERED: PREDNISONE 20 M20 M1 PO (13:26)
== END 2017-09-20 16:11 | disposition home or self-care (01) | DRG 871 ==
LOC: ER 14:11 → EROBS 16:08 → 3W 16:08 → ICU 09-15 13:24 → 2N 09-18 22:37 → ENTRNSPT 09-20 16:02 → 2N 09-20 16:11
PROVIDERS: Emergency Medicine; Hospitalist; Internal Medicine; Internal Medicine Pulmonary Disease; Nurse Practitioner; Specialist
PROC: 5A09357 Assistance with Respiratory Ventilation, Less than 24 Consecutive Hours, Continuous Positive Airway Pressure (ICD-10-PCS; principal; 2017-09-17)
PROC: 5A09357 Assistance with Respiratory Ventilation, Less than 24 Consecutive Hours, Continuous Positive Airway Pressure (ICD-10-PCS; 2017-09-18)
DX: A41.9 Sepsis, unspecified organism (principal); J69.0 Pneumonitis due to inhalation of food and vomit; J96.21 Acute and chronic respiratory failure with hypoxia; J96.22 Acute and chronic respiratory failure with hypercapnia; G92 Toxic encephalopathy; J10.08 Influenza due to other identified influenza virus with other specified pneumonia; B37.0 Candidal stomatitis; J44.1 Chronic obstructive pulmonary disease with (acute) exacerbation; E03.9 Hypothyroidism, unspecified; J44.9 Chronic obstructive pulmonary disease, unspecified; F31.9 Bipolar disorder, unspecified; G47.33 Obstructive sleep apnea (adult) (pediatric); F41.9 Anxiety disorder, unspecified; Z87.01 Personal history of pneumonia (recurrent); G89.29 Other chronic pain; M54.9 Dorsalgia, unspecified; F17.210 Nicotine dependence, cigarettes, uncomplicated; Y95 Nosocomial condition; T38.0X5A Adverse effect of glucocorticoids and synthetic analogues, initial encounter; M19.90 Unspecified osteoarthritis, unspecified site; Z99.81 Dependence on supplemental oxygen; Z87.440 Personal history of urinary (tract) infections; Z90.710 Acquired absence of both cervix and uterus; Z98.49 Cataract extraction status, unspecified eye; Z79.899 Other long term (current) drug therapy; Z88.8 Allergy status to other drugs, medicaments and biological substances; Z88.6 Allergy status to analgesic agent; Y92.89 Other specified places as the place of occurrence of the external cause; Z71.6 Tobacco abuse counseling
CPT/HCPCS: 10078; 10081; 10879

== ENCOUNTER 2017-10-18 13:25 | Inpatient (IN) | payer OTHER ==
[~2017-10-18] VITALS: Ht 165.1 cm; Wt 65.3 kg
--- NOTE | ~2017-10-18 | HC ---
[facility] [place] [address] CONSULTATION Name: GELY MARTINEZ Room #: 355-P [facility] IN M.R.#: [id number] Admission: 10/18/17 Attend Phys: Luciano Panda MD Discharge: 10/21/17 Date of : 65 Report #: [id number] THIS REPORT FOR: //name// CC: Olivia Anders DATE OF SERVICE: 10/19/2017 REFERRING PROVIDER: Dr. Alvarado. REASON FOR CONSULTATION: COPD exacerbation. CHIEF COMPLAINT: Shortness of breath. HISTORY OF PRESENT ILLNESS: Our group was asked to see the patient in consultation while hospitalized at [facility], known to us from prior office visits with Dr. Castellanos of our group and multiple hospital admissions in the past year. She has severe COPD and severe chronic hypoxemia, requiring 4 liters nasal cannula, is also on Trilogy device at night to assist with nocturnal ventilation, presented yesterday to the Emergency Department with increasing shortness of breath, some cough, fatigue, cough productive of yellow sputum. No nausea, vomiting or myalgias. Influenza screen in the Emergency Department was positive for influenza B. The patient was just here less than 1 month ago with influenza A and similar problems. The patient was admitted overnight, requested BiPAP, the patient does not tolerate hospital BiPAP interface due to the hard plastic surfaces and did not have her home Trilogy device available. The patient became more hypercapnic overnight with a CO2 going from 70 yesterday afternoon to 84 earlier this morning. The patient is sitting in chair at time of my evaluation and is communicative, although somewhat somnolent. ALLERGIES: Include CEPHALOSPORIN and CODEINE. PAST MEDICAL HISTORY: 1. Severe COPD. 2. Chronic hypoxemic respiratory failure. 3. Ongoing tobacco abuse, quitting right before last admission 1 month ago. 4. Bipolar disorder. 5. Anxiety disorder. 6. Hypothyroidism. 7. Hypercapnic respiratory failure, supported by nocturnal noninvasive positive pressure ventilation. OUTPATIENT MEDICATIONS: Include albuterol, Seroquel, lithium, metoprolol, Synthroid, DuoNebs, Breo inhaler, chlordiazepoxide and frequently using systemic [facility] [address] [place] [address] CONSULTATION Name: GELY MARTINEZ Room #: 355-P [facility] IN [facility].#: [id number] Admission: 10/18/17 Attend Phys: Luciano Panda MD Discharge: 10/21/17 Date of : 65 Report #: [id number]. SOCIAL HISTORY: Recently quit smoking, no alcohol consumption. Lives with . FAMILY HISTORY: Negative for any significant pulmonary disease. REVIEW OF SYSTEMS: CONSTITUTIONAL: No fevers or chills, general fatigue noted. ENT: No upper respiratory congestion or rhinorrhea. CARDIOVASCULAR: No chest pains or palpitations. RESPIRATORY: As described in HPI. GASTROINTESTINAL: No nausea, vomiting, abdominal pain or diarrhea. GENITOURINARY: No dysuria, no frequency or hematuria. INTEGUMENT: Denies any rash. MUSCULOSKELETAL: No new joint pains or swelling. Some general muscle weakness. PHYSICAL EXAMINATION: VITAL SIGNS: Afebrile, pulse 80s, respiratory rate 18, blood pressure 112/66, oxygen saturation 98% on 2 liters nasal cannula. GENERAL: This is a middle-aged woman, somnolent, but arousable, no distress. ENT: Clear oropharynx. No thrush. NECK: Supple, no lymphadenopathy. LUNGS: Diminished with expiratory wheezes noted throughout. CARDIOVASCULAR: Heart regular. No murmurs noted. ABDOMEN: Soft, no masses. EXTREMITIES: Warm, 2+ pulses, no edema. LABORATORY DATA: Chest x-ray revealed hyperexpansion consistent with COPD, otherwise clear lung gomez. White blood cell count 9000, hemoglobin 13, hematocrit 40, platelet count 209. Sodium 144, potassium 4.2, chloride 107, bicarbonate 34, BUN 12, creatinine 0.8, glucose 130. IMPRESSION: 1. Acute exacerbation of chronic obstructive pulmonary disease due to influenza. 2. Influenza B. 3. Svrzx-ha-rlxcwgh hypercapnic respiratory failure. The patient intolerant to hospital BiPAP. The patient refusing intubation if needed. RECOMMENDATIONS: Given hyperoxygenation, would titrate down FIO2, see if her home Pap therapy can be made available to assist with augmenting ventilation. Continue with systemic steroids, antibiotics, bronchodilators and oseltamivir. [address] [address] CONSULTATION Name: GELY MARTINEZ Room #: 355-P [facility] IN M.R.#: [id number] Admission: 10/18/17 Attend Phys: Luciano Panda MD Discharge: 10/21/17 Date of : 65 Report #: [id number] We will follow along with you. Consider minimizing any sedating medications, may be confounding her hypercapnia. <ELECTRONICALLY SIGNED> By: Alok Benton MD 10/26/17 1756 1114 1145 Alok Benton MD /nt
--- NOTE | ~2017-10-18 | EKG ---
[address] [address] ELECTROCARDIOGRAM REPORT Name: GELY BENDER Room #: 355-P ADM IN M.R.#: [id number] Admission: 10/18/17 Attend Phys: Luciano Panda MD Discharge: Date of : 65 Report #: [id number] THIS REPORT FOR: //name// 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: apoorva : 1965 Requested By: Macie Espinosa Order Number: [id number] MD: Raudel Wolf Measurements Intervals [place] Rate: 85 P: 86 MD: 162 QRS: 80 QRSD: 100 T: 11 QT: 405 QTc: 482 Interpretive Statements Sinus rhythm Minimal ST elevation, anterolateral leads Compared to ECG 09/13/2017 14:31:42 ST (T wave) deviation now present Sinus tachycardia no longer present Right-axis deviation no longer present Electronically Signed On 10-19-2017 7:17:20 CDT by Raudel Wolf [email or web address] <ELECTRONICALLY SIGNED> By: Raudel Wolf MD, [facility] 10/19/17 0717 1409 1409 Raudel Wolf MD, [facility] /EPI
[~2017-10-18 13:25] MED LIST changes: +BENZTROPINE MES1 MG PO; +CEFDINIR300 MG PO; +OSELB75 PO; +PREDNISOLONE 5 M5 MG PO; +SEROQUEL 100 M100 M2 PO
[2017-10-18 13:36] VITALS: BP 134/79
[2017-10-18 14:00] LABS: ABSOLUTE NEUTROPHILS 6.8 thou/uL (1.4-8.2); BASOPHILS 0.5 % (0.0-2.0); HEMATOCRIT 40.3 % (37.0-47.0); HEMOGLOBIN 12.7 gm/dL (12.0-15.0); LYMPHOCYTES 17.5 % (24.0-44.0); MCH 28.6 pg (26.0-34.0); MCHC 31.4 g/dL (28.0-37.0); MCV 91.2 fL (80.0-100.0); MONOCYTES 4.2 % (1.0-8.0); PLATELET COUNT 209 thou/uL (150-400); POLYS 75.8 % (36.0-66.0); RBC 4.42 mil/uL (4.20-5.00); RDW 14.6 % (10.5-14.5); WBC 8.9 thou/uL (4.0-11.0)
[2017-10-18 14:02] LABS: BE(vivo) 6.3 mmol/L (-2 to +3); HCO3 34.8 mmol/L (22.0-26.0); PCO2 70.4 mmHg (35.0-45.0); PO2 113.8 mmHg (80.0-100.0); pH 7.312 (7.360-7.450); sO2 97.6 % (92.0-98.0)
[2017-10-18 14:05] LABS: ANION GAP 0 mmol/L (7-16); BUN 14 mg/dL (7-18); CALCIUM 9.9 mg/dL (8.5-10.1); CHLORIDE 103 mmol/L (98-107); CO2 39 mmol/L (21-32); GLUCOSE 150 mg/dL (74-106); POTASSIUM 3.4 mmol/L (3.5-5.1); SODIUM 142 mmol/L (136-145)
[2017-10-18 14:14] LABS: ALBUMIN 3.6 g/dL (3.4-5.0); SGOT 13 U/L (15-37); SGPT 19 U/L (30-65); TOTAL BILIRUBIN 0.2 mg/dL (<0.1-1.0); TOTAL PROTEIN 7.7 g/dL (6.4-8.2); TROPONIN-I < 0.04 ng/mL (<0.06)
[2017-10-18 15:01] VITALS: BP 134/79
[2017-10-18 16:30] VITALS: BP 132/80
[2017-10-18 16:58] VITALS: BP 117/83
[2017-10-18 19:24] VITALS: BP 124/80
[2017-10-19 04:21] VITALS: BP 112/66
[2017-10-19 06:40] LABS: CALCIUM 8.9 mg/dL (8.5-10.1); CREATININE 0.8 mg/dL (0.6-1.0); MAGNESIUM 2.2 mg/dL (1.8-2.4); POTASSIUM 4.2 mmol/L (3.5-5.1)
[2017-10-19 07:45] VITALS: BP 99/62
[2017-10-19 08:00] LABS: HCO3 33.1 mmol/L (22.0-26.0); PO2 95.4 mmHg (80.0-100.0); sO2 95.4 % (92.0-98.0)
[2017-10-19 08:01] LABS: pH 7.214 (7.360-7.450)
[2017-10-19 11:32] VITALS: BP 112/67
[2017-10-19 12:17] LABS: BE(vivo) 5.2 mmol/L (-2 to +3); HCO3 32.2 mmol/L (22.0-26.0); PCO2 58.8 mmHg (35.0-45.0); pH 7.356 (7.360-7.450); sO2 86.2 % (92.0-98.0)
[2017-10-19 12:19] LABS: PO2 54.4 mmHg (80.0-100.0)
[2017-10-19 15:10] VITALS: BP 129/74
[2017-10-19 19:23] VITALS: BP 149/89
[2017-10-20] VITALS (7 sets, daily range): BP systolic 103–131; BP diastolic 63–81
[2017-10-20 05:27] LABS: ABSOLUTE NEUTROPHILS 9.1 thou/uL (1.4-8.2); BASOPHILS 0.1 % (0.0-2.0); LYMPHOCYTES 7.8 % (24.0-44.0); MCH 29.3 pg (26.0-34.0); MCHC 32.1 g/dL (28.0-37.0); MCV 91.4 fL (80.0-100.0); MONOCYTES 2.4 % (1.0-8.0); PLATELET COUNT 213 thou/uL (150-400); POLYS 89.7 % (36.0-66.0); RDW 14.4 % (10.5-14.5); WBC 10.2 thou/uL (4.0-11.0)
[2017-10-20 05:28] LABS: HEMOGLOBIN 10.6 gm/dL (12.0-15.0)
[2017-10-20 05:35] LABS: CREATININE 0.6 mg/dL (0.6-1.0); POTASSIUM 4.8 mmol/L (3.5-5.1)
[2017-10-21 04:30] VITALS: BP 119/69
[2017-10-21 05:47] LABS: HEMATOCRIT 35.5 % (37.0-47.0); HEMOGLOBIN 11.3 gm/dL (12.0-15.0); MCHC 31.9 g/dL (28.0-37.0); RBC 3.9 mil/uL (4.20-5.00); RDW 14.6 % (10.5-14.5); WBC 8.8 thou/uL (4.0-11.0)
[2017-10-21 05:57] LABS: CALCIUM 9.3 mg/dL (8.5-10.1); CREATININE 0.6 mg/dL (0.6-1.0); POTASSIUM 4.6 mmol/L (3.5-5.1)
[2017-10-21 07:35] VITALS: BP 119/82
[2017-10-21 11:25] VITALS: BP 104/64
[2017-10-21] MEDS ORDERED: PREDNISONE 10 M10 MG PO (12:07)
[2017-10-21 13:22] VITALS: BP 130/76
[2017-11-14] MEDS ORDERED: PREDNISONE 20 M20 M1 PO (13:26)
[2017-11-14] MEDS ORDERED: LEVAQUIN 750 M750 MG PO (13:26)
== END 2017-10-21 14:31 | disposition home health service (06) | DRG 193 ==
LOC: ER 13:25 → 3W 14:58 → EROBS 14:58 → 3W 16:25
PROVIDERS: Hospitalist; Internal Medicine Pulmonary Disease; Nurse Practitioner; Physician Assistant
DX: J10.1 Influenza due to other identified influenza virus with other respiratory manifestations (principal); J96.22 Acute and chronic respiratory failure with hypercapnia; J44.1 Chronic obstructive pulmonary disease with (acute) exacerbation; E03.9 Hypothyroidism, unspecified; F31.9 Bipolar disorder, unspecified; G47.33 Obstructive sleep apnea (adult) (pediatric); E87.6 Hypokalemia; R73.9 Hyperglycemia, unspecified; T38.0X5A Adverse effect of glucocorticoids and synthetic analogues, initial encounter; B37.9 Candidiasis, unspecified; F41.9 Anxiety disorder, unspecified; M19.90 Unspecified osteoarthritis, unspecified site; F17.210 Nicotine dependence, cigarettes, uncomplicated; Z90.710 Acquired absence of both cervix and uterus; Z99.81 Dependence on supplemental oxygen; Z71.6 Tobacco abuse counseling; Z79.52 Long term (current) use of systemic steroids; Y92.89 Other specified places as the place of occurrence of the external cause; Z79.899 Other long term (current) drug therapy; Z88.1 Allergy status to other antibiotic agents; Z88.5 Allergy status to narcotic agent; Z82.49 Family history of ischemic heart disease and other diseases of the circulatory system; Z82.5 Family history of asthma and other chronic lower respiratory diseases
CPT/HCPCS: 10879

== ENCOUNTER 2018-08-03 02:08 | Inpatient (IN) | payer OTHER ==
[~2018-08-03] VITALS: Ht 165.1 cm; Wt 67.1 kg
[2018-08-03] VITALS (41 sets, daily range): BP systolic 74–148; BP diastolic 46–77
--- NOTE | ~2018-08-03 | HC ---
[facility] [place] [address] CONSULTATION Name: GELY MARTINEZ Room #: 240-P ADM IN M.R.#: [id number] Admission: 08/03/18 Attend Phys: Giselle Jordan Discharge: Date of : 65 Report #: [id number] THIS REPORT FOR: //name// CC: Olivia Jordan DATE OF SERVICE: 08/09/2018 PALLIATIVE CARE CONSULTATION REQUESTING PHYSICIAN: Dr. Panda. CHIEF COMPLAINT: Palliative care related to respiratory failure. HISTORY OF PRESENT ILLNESS: The patient is a 53-year-old female who presented on 08/03/2018. She has had recurrent admissions for severe COPD. She has an FEV1 of 0.52. She has unfortunately had hypercapnic respiratory failure and overall, has a history of chronic combined respiratory failure. Since her admission, has required BiPAP and unfortunately, has had worsening condition since that time. It appeared that she had likely COPD exacerbation and then possible pneumonia. She is positive for MRSA as well. RSV was eventually diagnosed. Unfortunately, she has been unable to wean from BiPAP the entire time. She is now becoming bradycardic down to the 30s on her heart rate. Family is understanding that this is an end of life situation and are wishing to talk about palliative care measures at this time. The patient was unable to respond to me currently and has severe delirium. PAST MEDICAL HISTORY: COPD, hypertension, asthma, hypothyroidism, anxiety, bipolar disorder. SOCIAL HISTORY: She is . Has a longstanding tobacco use history of 42 pack years. MEDICATIONS: Albuterol, DuoNeb, Breo, Toprol, Incruse, Lamictal, Mobic, Seroquel. PAST SURGICAL HISTORY: Hysterectomy. FAMILY HISTORY: COPD, coronary artery disease. PRIMARY CARE PHYSICIAN: Olivia Ritter DO and host/hostess, Nima Castellanos MD. ALLERGIES: CEPHALOSPORINS AND CODEINE. CODE STATUS: Currently DNR, which is confirmed with family today. [facility] [address] [place] [address] CONSULTATION Name: GELY MARTINEZ Room #: [address] [place] [address] IN M.R.#: [id number] Admission: 08/03/18 Attend Phys: Giselle Jordan Discharge: Date of : 65 Report #: [id number] REVIEW OF SYSTEMS: Unable to obtain due to medical condition. PHYSICAL EXAMINATION: VITAL SIGNS: Temperature 36.6, pulse 47, respirations 19, blood pressure is 165/85 and 94% on BiPAP. GENERAL: She is not alert. Unable to assess orientation at this time, but does not appear to be in any distress currently. HEENT: Unable to assess for the most part due to severe delirium and BiPAP usage. RESPIRATORY: Does not appear to be in respiratory distress currently. CARDIOVASCULAR: Bradycardic, not currently irregular. ABDOMEN: No current distention. Diminished bowel sounds. LABORATORY DATA: Included initial pH 7.278, CO2 of 78 and O2 is 54. ASSESSMENT AND PLAN: 1. Acute on chronic combined respiratory failure. Discussed with family at this time. Spent approximately 45 minutes on advanced care planning, discussed with , daughters and in addition, grandchildren and sisters, discussed extensively her current condition. There was already recognition of her overall worsening medical state in that she is in a palliative situation. They understood that at this time and wished her to have removal from BiPAP as this was her previous wishes to not be supported by any mechanical devices. Additionally, discussed IVs, they were approving of any discontinuation of medications and full palliative care measures to include pain medication, anxiety medications and other measures to manage secretions. They were approving of full palliative care and comfort measures. They have met with spiritual care prior to my visit and we have discussed the timeline for removal of BiPAP. In addition, I have discussed with staff the administration of medications including morphine and including Ativan and also written for these orders in place on removal of monitoring and for visitation of family. Everyone is in understanding at this time given my information to staff to contact for any changes in status or changes in medications that are needed. 2. Chronic obstructive pulmonary disease, severe, end stage, management as above. 3. Bradycardia, at this time likely due to her lung condition. Again, discussed this with family. Discussed timeline with regards to the possibility of her dying process anywhere from hours to possibly even days considering this. Family is understanding of this. Thank you very much for the consultation on this patient. By: [id number] Jayden Murphy DO /nt
--- NOTE | ~2018-08-03 | HC ---
[facility] [place] [address] CONSULTATION Name: GELY MARTINEZ Room #: 240- ADM IN M.R.#: [id number] Admission: 08/03/18 Attend Phys: Giselle Jordan Discharge: Date of : 65 Report #: [id number] THIS REPORT FOR: //name// CC: Olivia Jordan DATE OF SERVICE: 08/05/2018 IDENTIFYING INFORMATION: This is a 53-year-old female. HISTORY OF PRESENT ILLNESS: This lady was admitted with exacerbation of COPD. Her is at the bedside. She has a right lower lobe pneumonia, UTI and sepsis. She is on Precedex and she has been getting some Haldol p.r.n. as well. notes that her bipolar has been fairly stable and that lately the only thing he did was move morning Seroquel to the evening. PAST PSYCHIATRIC HISTORY: The patient has a long history of bipolar affective disorder. She has been doing fairly well on her regimen that has included lamotrigine, quetiapine and lithium. PAST MEDICAL HISTORY: Sepsis, acute on chronic respiratory failure, right lower lobe pneumonia, hypothyroid and bipolar. SOCIAL HISTORY: She has a supportive who is at the bedside, seems to have number of stressors right now with 's daughter and some other family members. CURRENT MEDICATIONS: Include Seroquel 50 twice daily, levofloxacin 150 mL every 24 hours, morphine p.r.n., Haldol p.r.n., Solu-Medrol 62.5 q. 8, lithium 600 daily, metoprolol 50 twice daily, Lamictal 200 twice daily, guaifenesin 1200 twice daily and levothyroxine 150 mcg daily. ALLERGIES: CODEINE AND CEPHALOSPORINS. MENTAL STATUS EXAM: The patient is resting peacefully and barely arousable. DIAGNOSES: Bipolar affective disorder and delirium. RECOMMENDATIONS: Mild delirium at times it seems related to multiple medical issues. However, it appears she is arousable when nursing or family need to converse with her and she is able to take p.o. It appears that renal function is stable, so can continue with the lithium. Nursing and I did talk about continued use of Haldol and this is certainly preferable to a benzodiazepine given her respiratory status. It seems Precedex is also being used, which is an excellent choice, I believe, as long as we monitor her heart rate and blood pressure. [facility] [address] [place] [address] CONSULTATION Name: GELY MARTINEZ Room #: 240-P [facility] IN M.R.#: [id number] Admission: 08/03/18 Attend Phys: Giselle Jordan Discharge: Date of : 65 Report #: [id number] Thanks for asking me to participate in the case. I will be happy to follow with you. By: [id number] Alex Nieves MD /nt
[2018-08-03 02:41] LABS: ABSOLUTE NEUTROPHILS 15.6 thou/uL (1.4-8.2); BASOPHILS 0.3 % (0.0-2.0); EOSINOPHILS 0.2 % (0.0-3.0); HEMATOCRIT 47.2 % (37.0-47.0); HEMOGLOBIN 14.6 gm/dL (12.0-15.0); LYMPHOCYTES 5.5 % (24.0-44.0); MCH 28.1 pg (26.0-34.0); MCHC 30.9 g/dL (28.0-37.0); MCV 90.8 fL (80.0-100.0); PLATELET COUNT 184 thou/uL (150-400); WBC 17.5 thou/uL (4.0-11.0)
[2018-08-03 02:43] LABS: BE(vivo) 5.9 mmol/L (-2 to +3); HCO3 35.8 mmol/L (22.0-26.0); PCO2 78.4 mmHg (35.0-45.0); PO2 59.4 mmHg (80.0-100.0); sO2 86.2 % (92.0-98.0)
[2018-08-03 02:44] LABS: pH 7.278 (7.360-7.450)
[2018-08-03 02:48] LABS: ANION GAP 4 mmol/L (7-16); BUN 13 mg/dL (7-18); CALCIUM 10.3 mg/dL (8.5-10.1); CHLORIDE 99 mmol/L (98-107); CO2 38 mmol/L (21-32); CREATININE 0.7 mg/dL (0.6-1.0); GLUCOSE 127 mg/dL (74-106); SODIUM 141 mmol/L (136-145)
[2018-08-03 02:56] LABS: ALBUMIN 3.6 g/dL (3.4-5.0); SGOT 13 U/L (15-37); SGPT 15 U/L (30-65); TOTAL BILIRUBIN 0.4 mg/dL (<0.1-1.0); TOTAL PROTEIN 8.4 g/dL (6.4-8.2); TROPONIN-I <0.06 ng/mL (<0.06)
[2018-08-03] MEDS ORDERED: QUETIAPINE FUM100 MG PO (07:49)
[2018-08-03 08:11] LABS: BE(vivo) 4.2 mmol/L (-2 to +3); HCO3 33.8 mmol/L (22.0-26.0); PO2 71.3 mmHg (80.0-100.0); sO2 91.2 % (92.0-98.0)
--- NOTE | 2018-08-03 08:19 | EKG ---
[address] [place] [address] ELECTROCARDIOGRAM REPORT Name: GELY MARTINEZ Room #: 240-P ADM IN M.R.#: [id number] Admission: 08/03/18 Attend Phys: Giselle Jordan Discharge: Date of : 65 Report #: [id number] THIS REPORT FOR: //name// [facility] ED Test Date: 2018-08-03 Test Time: 03:38:05 Pat Name: GELY MARTINEZ Department: Room: 240 Gender: F Life Skills Trainer: artem : 1965 Requested By: Masha Templeton Order Number: [id number] MD: Raudel Wolf Measurements Intervals [place] Rate: 103 P: 82 AL: 209 QRS: 101 QRSD: 95 T: 44 QT: 355 QTc: 465 Interpretive Statements Sinus tachycardia Right axis deviation Abnormal R-wave progression, late transition Compared to ECG 11/14/2017 11:06:16 ST and T wave abnormality is less pronounced Electronically Signed On 08-03-2018 8:19:19 SHE[employer] WORKER by Raudel Wolf [email or web address] <ELECTRONICALLY SIGNED> By: Raudel Wolf MD, [facility] 08/03/1819 0338 0338 Raudel Wolf MD, [facility] /EPI
[2018-08-03 09:17] LABS: URINE CLARITY CLOUDY; URINE COLOR YELLOW; URINE GLUCOSE-RANDOM* NEGATIVE (Negative); URINE KETONES TRACE (Negative); URINE PROTEIN (DIPSTICK) TRACE (Negative)
[2018-08-03 09:18] LABS: URINE BILIRUBIN NEGATIVE (Negative); URINE BLOOD NEGATIVE (Negative); URINE LEUKOCYTES-REFLEX TRACE (Negative); URINE NITRITE-REFLEX POSITIVE (Negative); URINE UROBILINOGEN 0.2 E.U./dl (0.2-1.0)
[2018-08-03 09:21] LABS: BACTERIA-REFLEX >30 Many /HPF (None Seen); CASTS None Seen /LPF (None Seen); CRYSTALS None Seen /LPF (None Seen); SQUAMOUS 4-10 Moderate /LPF (0-3); URINE RBC None Seen /HPF (0-2); URINE WBC-REFLEX >25 Many /HPF (0-5)
[2018-08-03 10:25] LABS: BE(vivo) 5.2 mmol/L (-2 to +3); HCO3 34.9 mmol/L (22.0-26.0); PO2 67.8 mmHg (80.0-100.0); sO2 89.7 % (92.0-98.0)
[2018-08-03 10:26] LABS: PCO2 80.3 mmHg (35.0-45.0); pH 7.256 (7.360-7.450)
[2018-08-04] VITALS (38 sets, daily range): BP systolic 98–151; BP diastolic 55–86
[2018-08-04 00:11] LABS: BE(vivo) 0.9 mmol/L (-2 to +3); HCO3 29.9 mmol/L (22.0-26.0); PO2 79.8 mmHg (80.0-100.0); sO2 93.3 % (92.0-98.0)
[2018-08-04 00:12] LABS: PCO2 70.8 mmHg (35.0-45.0); pH 7.243 (7.360-7.450)
[2018-08-04 04:42] LABS: ANION GAP < 0 mmol/L (7-16); BUN 12 mg/dL (7-18); CALCIUM 9.5 mg/dL (8.5-10.1); CHLORIDE 105 mmol/L (98-107); CO2 37 mmol/L (21-32); CREATININE 0.6 mg/dL (0.6-1.0); GLUCOSE 161 mg/dL (74-106); POTASSIUM 4.5 mmol/L (3.5-5.1); SODIUM 140 mmol/L (136-145)
[2018-08-04 05:01] LABS: ABSOLUTE NEUTROPHILS 8.6 thou/uL (1.4-8.2); LYMPHOCYTES 3.4 % (24.0-44.0); MCH 28.3 pg (26.0-34.0); MCHC 30.9 g/dL (28.0-37.0); MCV 91.8 fL (80.0-100.0); MONOCYTES 2.3 % (1.0-8.0); PLATELET COUNT 142 thou/uL (150-400); POLYS 94.3 % (36.0-66.0); RBC 4.14 mil/uL (4.20-5.00); RDW 15.3 % (10.5-14.5); WBC 9.2 thou/uL (4.0-11.0)
[2018-08-04 05:03] LABS: BE(vivo) 6.6 mmol/L (-2 to +3); HCO3 36.3 mmol/L (22.0-26.0); PO2 74.9 mmHg (80.0-100.0); sO2 92.1 % (92.0-98.0)
[2018-08-04 05:03] LABS: HEMOGLOBIN 11.7 gm/dL (12.0-15.0)
[2018-08-04 05:05] LABS: PCO2 82.7 mmHg (35.0-45.0)
[2018-08-04 07:32] LABS: BE(vivo) 6.3 mmol/L (-2 to +3); HCO3 36.2 mmol/L (22.0-26.0); PCO2 85.7 mmHg (35.0-45.0); PO2 101.3 mmHg (80.0-100.0); pH 7.244 (7.360-7.450); sO2 96.3 % (92.0-98.0)
[2018-08-04 09:40] LABS: BE(vivo) 6.1 mmol/L (-2 to +3); HCO3 35.9 mmol/L (22.0-26.0); PCO2 83.1 mmHg (35.0-45.0); pH 7.253 (7.360-7.450); sO2 96.4 % (92.0-98.0)
[2018-08-04 11:14] LABS: BE(vivo) 5.1 mmol/L (-2 to +3); HCO3 34.2 mmol/L (22.0-26.0); sO2 94.4 % (92.0-98.0)
[2018-08-04 11:15] LABS: PCO2 76.2 mmHg (35.0-45.0)
[2018-08-05] VITALS (50 sets, daily range): BP systolic 86–169; BP diastolic 41–99
[2018-08-05 07:24] LABS: HEMATOCRIT 39.2 % (37.0-47.0); HEMOGLOBIN 12.3 gm/dL (12.0-15.0); MCH 28.6 pg (26.0-34.0); MCHC 31.3 g/dL (28.0-37.0); MCV 91.3 fL (80.0-100.0); RBC 4.3 mil/uL (4.20-5.00); WBC 9.2 thou/uL (4.0-11.0)
[2018-08-05 07:39] LABS: ALBUMIN 2.8 g/dL (3.4-5.0); CALCIUM 9.2 mg/dL (8.5-10.1); CREATININE 0.5 mg/dL (0.6-1.0); PHOSPHORUS 3.1 mg/dL (2.5-4.9)
[2018-08-06] VITALS (28 sets, daily range): BP systolic 106–168; BP diastolic 63–103
[2018-08-06 05:43] LABS: HEMOGLOBIN 11.1 gm/dL (12.0-15.0); MCH 28.8 pg (26.0-34.0); MCHC 31.7 g/dL (28.0-37.0); MCV 90.9 fL (80.0-100.0); RBC 3.85 mil/uL (4.20-5.00); RDW 14.7 % (10.5-14.5); WBC 4.4 thou/uL (4.0-11.0)
[2018-08-06 05:51] LABS: CALCIUM 8.8 mg/dL (8.5-10.1); CREATININE 0.5 mg/dL (0.6-1.0)
[2018-08-06 05:55] LABS: POTASSIUM 4.7 mmol/L (3.5-5.1)
[2018-08-07] VITALS (13 sets, daily range): BP systolic 99–162; BP diastolic 48–104
[2018-08-07 05:08] LABS: ADENOVIRUS Negative (Negative); INFLUENZA A Negative (Negative); INFLUENZA B Negative (Negative); METAPNEUMOVIRUS Negative (Negative); PARAINFLUENZA 1 Negative (Negative); PARAINFLUENZA 2 Negative (Negative); PARAINFLUENZA 3 Negative (Negative); RHINOVIRUS Negative (Negative); RSV A Negative (Negative); RSV B Positive (Negative)
[2018-08-07 05:13] LABS: HEMATOCRIT 37.1 % (37.0-47.0); HEMOGLOBIN 11.7 gm/dL (12.0-15.0); MCH 28.6 pg (26.0-34.0); MCHC 31.6 g/dL (28.0-37.0); MCV 90.6 fL (80.0-100.0); RBC 4.1 mil/uL (4.20-5.00); RDW 14.7 % (10.5-14.5); WBC 6.6 thou/uL (4.0-11.0)
[2018-08-07 05:21] LABS: CALCIUM 8.6 mg/dL (8.5-10.1); CREATININE 0.6 mg/dL (0.6-1.0); POTASSIUM 4.2 mmol/L (3.5-5.1)
[2018-08-08] VITALS (24 sets, daily range): BP systolic 123–175; BP diastolic 54–124
[2018-08-08 05:04] LABS: HEMATOCRIT 37.1 % (37.0-47.0); HEMOGLOBIN 11.5 gm/dL (12.0-15.0); MCH 28.5 pg (26.0-34.0); MCHC 30.9 g/dL (28.0-37.0); MCV 92.1 fL (80.0-100.0); RBC 4.03 mil/uL (4.20-5.00); RDW 14.9 % (10.5-14.5); WBC 5.5 thou/uL (4.0-11.0)
[2018-08-08 05:13] LABS: CALCIUM 8.9 mg/dL (8.5-10.1); CREATININE 0.7 mg/dL (0.6-1.0); POTASSIUM 3.9 mmol/L (3.5-5.1)
[2018-08-09] VITALS (26 sets, daily range): BP systolic 132–188; BP diastolic 72–96
[2018-08-10] VITALS: BP 114/52
[2018-08-10 02:53] VITALS: BP 106/53
[2018-08-10 06:00] VITALS: BP 85/41
== END 2018-08-10 07:15 | DRG 871 ==
LOC: ER 02:08 → EROBS 03:27 → ICU 03:27
PROVIDERS: Hospitalist; Internal Medicine Pulmonary Disease; Nurse Practitioner Acute Care; Pediatrics; Student in an Organized Health Care Education/Training Program; ADMIT Hospitalist
PROC: 5A09357 Assistance with Respiratory Ventilation, Less than 24 Consecutive Hours, Continuous Positive Airway Pressure (ICD-10-PCS; principal; 2018-08-04)
PROC: 5A09357 Assistance with Respiratory Ventilation, Less than 24 Consecutive Hours, Continuous Positive Airway Pressure (ICD-10-PCS; 2018-08-05)
PROC: 5A09357 Assistance with Respiratory Ventilation, Less than 24 Consecutive Hours, Continuous Positive Airway Pressure (ICD-10-PCS; 2018-08-06)
PROC: 5A09357 Assistance with Respiratory Ventilation, Less than 24 Consecutive Hours, Continuous Positive Airway Pressure (ICD-10-PCS; 2018-08-07)
PROC: 5A09357 Assistance with Respiratory Ventilation, Less than 24 Consecutive Hours, Continuous Positive Airway Pressure (ICD-10-PCS; 2018-08-08)
PROC: 5A09357 Assistance with Respiratory Ventilation, Less than 24 Consecutive Hours, Continuous Positive Airway Pressure (ICD-10-PCS; 2018-08-09)
DX: A41.9 Sepsis, unspecified organism (principal); J96.22 Acute and chronic respiratory failure with hypercapnia; J96.21 Acute and chronic respiratory failure with hypoxia; J18.1 Lobar pneumonia, unspecified organism; J44.1 Chronic obstructive pulmonary disease with (acute) exacerbation; G93.1 Anoxic brain damage, not elsewhere classified; J44.0 Chronic obstructive pulmonary disease with (acute) lower respiratory infection; E03.9 Hypothyroidism, unspecified; F31.9 Bipolar disorder, unspecified; J45.909 Unspecified asthma, uncomplicated; F41.9 Anxiety disorder, unspecified; G89.29 Other chronic pain; M54.9 Dorsalgia, unspecified; R41.0 Disorientation, unspecified; I10 Essential (primary) hypertension; Z66 Do not resuscitate; R00.1 Bradycardia, unspecified; F17.210 Nicotine dependence, cigarettes, uncomplicated; N30.90 Cystitis, unspecified without hematuria; B96.20 Unspecified Escherichia coli [E. coli] as the cause of diseases classified elsewhere; Z23 Encounter for immunization; Z90.710 Acquired absence of both cervix and uterus; Z98.49 Cataract extraction status, unspecified eye; Z88.6 Allergy status to analgesic agent; Z88.8 Allergy status to other drugs, medicaments and biological substances; Z82.49 Family history of ischemic heart disease and other diseases of the circulatory system; Z83.6 Family history of other diseases of the respiratory system; Z91.19 Patient's noncompliance with other medical treatment and regimen; Z99.81 Dependence on supplemental oxygen
CPT/HCPCS: 10078